=== PATIENT | female | born 1975 | race American Indian/Alaskan Native ===

== ENCOUNTER 2018-08-24 15:42 | Inpatient (IN) | payer OTHER ==
[~2018-08-24] VITALS: Ht 162.6 cm; Wt 99.7 kg
[2018-08-24] MEDS ORDERED: GABAPENTIN300 MG PO (16:07)
[2018-08-24] MEDS ORDERED: CYMBALTA60 MG PO (16:08)
--- NOTE | 2018-08-25 09:51 | HP ---
[facility] [address], [place] [address] Signed ADMISSION DATE: 08/24/2018 REASON FOR ADMISSION: Obstructive jaundice, cholecystitis, and gallstones. HISTORY: This obese (37.6 kg/m2 BMI) woman is a registered [employer] member at the local [facility]. She presented to the emergency room today, where she was evaluated by Dr. Alicea. She had been referred from [facility] having had liver enzyme studies a few days ago, which showed market transaminase elevation as well as alkaline phosphatase and what was said to be normal bilirubin at that time. Her evaluation clinically showed her to be jaundiced and repeat lab studies showed a normal protime, but a chem profile showing a total bilirubin of 6.6, an AST of 291, ALT of 671, alkaline phosphatase of 298. Her lipase was normal at 6. She has been having epigastric pain as well as nausea. The patient has never had abdominal surgery in the past, is not known to have had any abdominal problems particularly in the past. A gallbladder ultrasound was performed, which confirmed multiple gallstones. Normal appearing liver except for mild common duct dilatation to 1.3 cm. She is clinically considered likely to have obstructive jaundice related to gallstones and acute calculous cholecystitis. PAST MEDICAL HISTORY: Significant for marijuana use. She does not smoke or drink alcohol. She has had childbirth, has children ages 21 and 17. SOCIAL HISTORY: She is unemployed. She has a live-in boyfriend, Mr. Jones. REVIEW OF SYSTEMS: She denies any dysphagia or hematemesis. She has had no blood per rectum. Her pain is less than her nausea. She has concurrent fair amount of itching. MEDICATIONS: At the time of admission include Cymbalta 60 mg p.o. daily as well as gabapentin 300 mg tablets two tablets p.o. b.i.d. ALLERGIES: Electronically Signed By: CHELSEY MARTINEZ MD 08/25/18 0951 PATIENT NAME: SHANNAN MAI HISTORY AND PHYSICAL DATE OF : 73 REPORT #: [id number] PHYSICIAN: CHELSEY MARTINEZ MD PCP: JAMEEL WILSON REPORT IS CONFIDENTIAL AND NOT TO BE RELEASED WITHOUT AUTHORIZATION [facility] [address], [place] [address] Signed She has no known drug allergies. PHYSICAL EXAMINATION: GENERAL: This is an obese, woman, who does not look systemically toxic at the moment. VITAL SIGNS: Temperature is 99, pulse is 65, blood pressure 143/61, pulse oximetry 99%. HEENT: Mucous membranes are slightly dry. Trachea is midline. CHEST: Clear. There is no wheeze or rhonchi. HEART: Regular without murmur. ABDOMEN: Quite obese. There is mild tenderness in the epigastric and right subcostal area. There is no ascites clinically. EXTREMITIES: Show no clubbing, cyanosis, or edema. LAB STUDIES: Lab studies show the hepatitis panel having been obtained, results pending. Chem profile showing a potassium of 3.4, creatinine of 0.64, glucose 110, but total bilirubin 6.6, AST 291, ALT 671, alkaline phosphatase 298, lipase 6. INR is 0.8. I reviewed the ultrasound in detail. ASSESSMENT: The patient likely does have acute calculous cholecystitis, now complicated by choledocholithiasis as manifested by elevated liver enzymes as well as elevated bilirubin. She needs admission to the hospital, intravenous antibiotics, parenteral pain medication, DVT prophylaxis, and consideration for cholecystectomy. A laparoscopic approach with laparoscopic common duct would be a consideration if cholangiogram demonstrates a distal common duct stone or stones. On the other hand, given her obesity the possibility of an open operation may be considered as well. We will obtain lab studies in the morning to see what trend her liver enzymes are, in particular her bilirubin. If things are worsening, then imaging might be considered for MRCP, though it would not markedly change an operative plan unless neoplasm rather than stones were the cause of the problem. I think it is unlikely that a pancreatic neoplasm would be causing biliary obstruction. However, I would also expect her to have more tenderness than she does currently. In any case, she will be a regular admit inpatient type anticipating probably several days of hospitalization. Chelsey Martinez MD Electronically Signed By: CHELSEY MARTINEZ MD 08/25/18 0951 PATIENT NAME: SHANNAN MAI HISTORY AND PHYSICAL DATE OF : 73 REPORT #: [id number] PHYSICIAN: CHELSEY MARTINEZ MD PCP: JAMEEL WILSON REPORT IS CONFIDENTIAL AND NOT TO BE RELEASED WITHOUT AUTHORIZATION [facility] [address] [place] [address] Signed HERMES/JOAQUIN /[id number] cc: [facility] Dr. Alicea Copies: [facility] ~ Electronically Signed By: CHELSEY MARTINEZ MD 08/25/18 0951 PATIENT NAME: SHANNAN MAI HISTORY AND PHYSICAL DATE OF : 73 REPORT #: [id number] PHYSICIAN: CHELSEY MARTINEZ MD PCP: JAMEEL WILSON REPORT IS CONFIDENTIAL AND NOT TO BE RELEASED WITHOUT AUTHORIZATION
[2018-08-28] MEDS ORDERED: MAPAP325 MG PO (11:48)
[2018-08-28] MEDS ORDERED: HYDROMORPHONE HC2 MG PO (11:48)
[2018-08-28] MEDS ORDERED: CIPRO500 MG PO (11:50)
--- NOTE | 2018-08-29 10:11 | OR ---
[facility] [address] [facility] [place] [address] Signed DATE OF OPERATION: 08/25/2018 SURGEON: Chelsey Martinez MD PREOPERATIVE DIAGNOSES: 1. Obstructive jaundice and acute calculous cholecystitis. 2. Obesity. POSTOPERATIVE DIAGNOSES: 1. Severe acute cholecystitis. 2. Complete common duct obstruction secondary to large obstructing stone and debris. 3. Morbid obesity. PROCEDURES PERFORMED: 1. Laparoscopy/laparoscopic cholecystectomy with conversion to open cholecystectomy with open common bile duct exploration. 2. Flexible choledochoscopy with basket retrieval of distal common bile duct stone. 3. Surgeon-directed fluoroscopy. NUMERICAL CONTROL MACHINE OPERATOR: Nurse (Samir Conde RN). ANESTHESIA: General endotracheal, Miguel Esparza AUTOMATION AND CONTROLS SUPERVISOR. DRAINS: A 14-Eritrean T-Tube and 7 mm flat Tyrell. INDICATION: This 43-year-old woman was admitted yesterday with significant jaundice with a bilirubin of greater than 6, an elevated alkaline phosphatase and other liver enzymes. White count was not elevated. She had been painful and sick for a few days leading up to her presentation to [facility] who transferred her to [facility] for further evaluation. Her evaluation did include a gallbladder ultrasound which showed a dilated common duct as well as multiple stones. She was fluid resuscitated given intravenous antibiotics, parenteral pain medication and so forth, and her symptoms largely resolved. Interestingly, her liver enzymes decreased and bilirubin went from 6 to 3.4. Electronically Signed By: CHELSEY MARTINEZ MD 08/29/18 1011 PATIENT NAME: SHANNAN MAI OPERATIVE REPORT DATE OF : 73 REPORT #: [id number] PHYSICIAN: CHELSEY MARTINEZ MD PCP: ELLE WILSON REPORT IS CONFIDENTIAL AND NOT TO BE RELEASED WITHOUT AUTHORIZATION [facility] [address] [place], [place] [address] Signed Her symptoms markedly improved since last night and I had anticipated possible passage of common duct stone that may have been present. She is admitted at this time to undergo a laparoscopic cholecystectomy for acute cholecystitis and possible common duct exploration by a laparoscopic or even open method depending on findings. The risks of bleeding, infection, bile duct injury, need for open procedure, need for prolonged other interventions, including T-tube and so forth have been reviewed with the patient and her boyfriend. They understand and wished to proceed. FINDINGS: She was indeed morbidly obese. Nevertheless, good access was noted to the upper abdomen. The liver appeared normal. The gallbladder was covered in the fatty peritoneum and was markedly inflamed. Dissection was lengthy and laborious in identifying the infundibulum of the gallbladder. Cholangiogram ultimately performed during laparoscopic evaluation showed complete obstruction of the common duct, marked dilation of the common duct. A laparoscopic approach could not be possible despite usual intention and ability to do so. She required conversion to open operation, which was notable for markedly fibrotic and inflammatory changes of the triangle of Calot including the common duct. Needle cholangiogram confirmed distal common duct obstruction and common duct exploration allowed for egress of amorphous stone debris and flexible choledochoscopy identified an impacted large distal common duct stone which was removed with stone basket. A T-tube completion cholangiogram showed good flow into the duodenum. No sign of obstruction, stone, or other problem. The operation was prolonged, complicated, and difficult lasting from 6 p.m. to 9:30 p.m. DESCRIPTION OF PROCEDURE: The patient was brought to the operating room, given a general endotracheal anesthetic. She had been on antibiotic Ancef. Sequential compression device stockings were used and heparin subcutaneously administered. After satisfactory general endotracheal anesthesia, the abdomen was prepared with a chlorhexidine solution and draped sterilely. Infraumbilical incision was made and through her thick abdominal pannus, a Rupesh cannula ultimately placed and pneumoperitoneum achieved to a level of 14 mmHg of carbon dioxide gas. Intraabdominal inspection showed no sign of ascites or carcinomatosis. The gallbladder was obscured from view initially. Three additional trocars were placed in usual configuration in the subxiphoid, right midclavicular, and right anterior axillary line. The gallbladder had adherent omental adhesions which were taken down with blunt and electrocautery dissection. Maintaining dissection high on the infundibulum, dissection was undertaken with electrocautery. Marked inflammatory changes of the gallbladder in the infundibulum were noted. A bulbous appearing portion of the infundibulum obscured the anatomy quite markedly. Dissection was began at the mid gallbladder distalward so as to better identify the anatomy of the area. Cystic arterial branches were clipped and divided. Firm, fibrotic, and markedly inflamed infundibulum and triangle of Calot was noted. Ultimately, the infundibulum of the Electronically Signed By: CHELSEY MARTINEZ MD 08/29/18 1011 PATIENT NAME: SHANNAN MAI OPERATIVE REPORT DATE OF : 73 REPORT #: [id number] PHYSICIAN: CHELSEY MARTINEZ MD PCP: ELLE WILSON REPORT IS CONFIDENTIAL AND NOT TO BE RELEASED WITHOUT AUTHORIZATION [address] [address] Signed gallbladder could be identified and dissection carried distally, which showed a bulbous change suggestive of impacted stone material either an additional infundibulum or a markedly dilated cystic duct. Care was taken to avoid excessive dissection and unlikely possibility this represented the common bile duct. A transverse choledochotomy was made and was considered the infundibulum or dilated cystic duct and egress of cheesy stone debris was noted. Using the Yanes type cholangiocatheter, intraoperative cholangiography was undertaken. Contrast passed through into the common bile duct which was markedly dilated and was complete and total obstruction distally. The obstructing stone was one quite unlikely to be easily managed by ERCP, papillotomy, or other more noninvasive means. The decision was made to convert to open operation to better define the anatomy for safety sake as well as common duct exploration as able. The trocars were removed. The infraumbilical fascial incision was reapproximated with interrupted 0 Vicryl suture. Right subcostal incision was made, keeping it modest in size and utilizing one of the trocar sites. Dissection was carried through the thick abdominal pannus sharply, anterior rectus sheath, rectus muscle, and posterior rectus sheath and its attendant peritoneum were incised allowing for entry into the abdomen. A fair amount of irrigation fluid and so forth was noted. A Bookwalter retractor with the small ring was affixed to the table and this provided good exposure to the right upper abdomen. The gallbladder had almost completely been dissected free from the liver already from the laparoscopic effort. Further dissection was undertaken freeing it entirely. In the infundibulum, firm rubbery tissue was noted. It was unclear if this represented cystic duct or simply an extended portion of infundibulum. The peritoneum overlying the common bile duct was incised. It was thick and edematous, but did allow for better delineation of the structures. Soft duct area was identified, a butterfly needle cholangiogram was undertaken. This defined the anatomy quite nicely. The area that had been under dissection was indeed a thickened cystic duct, but it was not really patent to the gallbladder more than a very small amount. It would have been impossible to have done a transcystic duct exploration. Complete obstruction of the distal duct was noted and marked dilation of the common duct noted. It was deemed advisable to do an open common duct exploration. Two stay sutures of 4-0 PDS were aligned along the common bile duct at the junction of the cystic duct, not far from the duodenal sweep. A choledochotomy was made in the common bile duct with an #11 blade on extended handle, allow for marked egress of bilious material and cheesy stone debris. Irrigation was undertaken with a bulb parachute/combatant diver officer after extending the choledochotomy, small amount. A Juanjose balloon biliary catheter was passed proximally Electronically Signed By: CHELSEY MARTINEZ MD 08/29/18 1011 PATIENT NAME: SHANNAN MAI OPERATIVE REPORT DATE OF : 73 REPORT #: [id number] PHYSICIAN: CHELSEY MARTINEZ MD PCP: ELLE WILSON REPORT IS CONFIDENTIAL AND NOT TO BE RELEASED WITHOUT AUTHORIZATION [facility] [address] [place] [address] Signed and distally retrieving no further material. A flexible choledochoscope with a camera adapter was then passed proximally in the common duct, showing no sign of proximal problem and then reoriented distally. There in the distal portion of the duct, was an obstructing large stone. A stone basket was passed down the channel of the scope, grasping the stone and gently withdrawn it through the choledochotomy. Photographs were taken. Flexible choledochoscope was reintroduced and examination distally showed complete clearance of the duct. There was a minimal amount of stone debris, which was gently suctioned free and gathered up. A 14-Eritrean T-Tube was then cut to usual configuration and secured into the common bile duct. The choledochotomy was secured with interrupted 4-0 PDS suture. Irrigation of the T-tube showed no sign of leakage. Through a separate stab incision, a 7 mm flat Tyrell drain was anticipated. A completion T-tube cholangiogram was undertaken showing free flow of contrast in the duodenum. No sign of obstruction or other problem. The common duct remained dilated as it would be expected. The cystic duct which was very dilated and edematous was oversewn with a horizontal mattress of 2-0 PDS suture. A 7 mm flat Tyrell drain was placed as a backup drain in the subhepatic space. There was no leakage of bile from the choledochotomy repair. Irrigation was undertaken and plans made for closure. The T-tube was brought out through a central midline stab incision without keeping it too tight so as to avoid dislodgement and secured to the skin with nylon suture. The Tyrell drain was secured laterally through a 5 mm trocar site. The posterior sheath and its attendant peritoneum were reapproximated with running #1 PDS suture. Muscular layer was irrigated. The anterior rectus sheath reapproximated with running PDS also. Subcutaneous tissue was irrigated copiously and the skin closed with running subcuticular 3-0 Vicryl. Steri-Strips were applied. Care was taken to secure the T-tube and Tyrell drain with separate OpSite so as to avoid dislodgement. Mepilex silver sponge dressing was applied to the main incision. Infraumbilical incision was reapproximated and secured with Steri-Strips. As the operation had been rather prolonged, a Yee catheter was placed showing clear yellow orange urine. The patient was ultimately extubated and transferred to recovery room in good condition having suffered no complication. Sponge, needle, and instrument counts reported as Electronically Signed By: CHELSEY MARTINEZ MD 08/29/18 1011 PATIENT NAME: SHANNAN MAI OPERATIVE REPORT DATE OF : 73 REPORT #: [id number] PHYSICIAN: CHELSEY MARTINEZ MD PCP: ELLE WILSON REPORT IS CONFIDENTIAL AND NOT TO BE RELEASED WITHOUT AUTHORIZATION [facility] [address] [place] [address] Signed correct x3. Blood loss was about 100 mL. The operation was prolonged, complicated, and difficult lasting three and half hours. MD HERMES Alberto/MODL /[id number] cc: Elle Alicea MD Copies: ELLE WILSON WILLIAM S MD ~ Electronically Signed By: CHELSEY MARTINEZ MD 08/29/18 1011 PATIENT NAME: SHANNAN MAI OPERATIVE REPORT DATE OF : 73 REPORT #: [id number] PHYSICIAN: CHELSEY MARTINEZ MD PCP: ELLE WILSON REPORT IS CONFIDENTIAL AND NOT TO BE RELEASED WITHOUT AUTHORIZATION
--- NOTE | 2018-08-29 10:33 | DS ---
[facility] [address] [place], [place] [address] Signed ADMISSION DATE: 08/24/2018 DISCHARGE DATE: 08/28/2018 REASON FOR ADMISSION: This 43-year-old [place] woman was admitted on August 24, 2018, with significant jaundice with bilirubin greater than 6, elevated alkaline phosphatase, and other liver enzymes. She had been painful and sick for a few days leading up to her presentation to [facility] and transferred to [facility] emergency room for further evaluation. Evaluation included gallbladder ultrasound showing a dilated common duct as well as multiple gallstones. She is admitted for further evaluation and care. PERTINENT PHYSICAL: GENERAL: Showed an [place] woman who appeared jaundiced. Trachea is midline. CHEST: Clear. HEART: Regular without murmur. ABDOMEN: Very obese with tenderness in right upper abdomen. HOSPITAL COURSE: She was admitted, given fluid resuscitation, parenteral pain medication, antibiotics and so forth. Her bilirubin did drop from 6 to 3.5. Liver enzymes are still elevated. On August 25, 2018, she underwent laparoscopy, anticipating laparoscopic cholecystectomy. Cholangiogram showed a common duct that was markedly dilated with complete obstruction and extremely large stone or obstruction within it. It is unlikely this would have been able to pass by a laparoscopic transcystic duct exploration or even ERCP probably. On that basis, she is converted to open operation where she underwent common duct exploration. She was found to have a large gallstone wedged in the distal bile duct as well as a fair amount of sludge material within the common duct. A T-tube was placed. T-tube cholangiogram showed good flow into the duodenum and no sign of obstructing lesion at that point. Accessory drain was placed in subhepatic space. Her postoperative course was impressively unremarkable. The T-tube bile drain was left to drainage for 48 hours and then capped off, which she tolerated well. By the time of discharge, she is ambulating well, tolerating a regular diet. Accessory drain has been removed and she is doing markedly better. Her liver enzymes have never turned to normal. This plan that she will undergo a T-tube cholangiogram as an outpatient at which point, it will be pole that it is without sign of abnormality. In the meantime, she will leave the T-tube in place. She was instructed to shower and to walk on a daily basis. Electronically Signed By: CHELSEY MARTINEZ MD 08/29/18 1033 PATIENT NAME: SHANNAN MAI DISCHARGE SUMMARY DATE OF : 73 REPORT #: [id number] PHYSICIAN: CHELSEY MARTINEZ MD PCP: ELLE WILSON REPORT IS CONFIDENTIAL AND NOT TO BE RELEASED WITHOUT AUTHORIZATION [facility] [address] [place], [place] [address] Signed DISCHARGE MEDICATIONS: Will include: 1. Hydromorphone 2 mg tablets 1 to 2 every 4 hours as needed for pain, #5, no refill. 2. Tylenol 325 two tablets p.o. q.6 hours as needed for pain. 3. Continued use of gabapentin 300 mg tablets, 2 tablets p.o. b.i.d. 4. Duloxetine. 5. Cymbalta 60 mg tablets daily. Additionally, she was discharged with ciprofloxacin 500 mg tablet to take one-half hour before T-tube cholangiogram which will be done in about 2 to 3 weeks. If she has problems in the meantime, she will let me know. She is not restricted in her diet. She should lift no more than 20 pounds for the next 4 weeks. DISCHARGE DIAGNOSES: 1. Acute calculus cholecystitis with complete common duct obstruction and obstructive jaundice, status post laparoscopy with conversion to open cholecystectomy and open common duct exploration. Flexible choledochoscopy and retrieval of impacted stone debris in distal common duct. 2. Obesity. 3. Daily marijuana use. MD HERMES Alberto/MODL /[id number] cc: MD Elle Pepper Copies: FERDINAND PEDERSEN MD, ELIZABETH ~ Electronically Signed By: CHELSEY MARTINEZ MD 08/29/18 1033 PATIENT NAME: SHANNAN MAI DISCHARGE SUMMARY DATE OF : 73 REPORT #: [id number] PHYSICIAN: CHELSEY MARTINEZ MD PCP: ELLE WILSON REPORT IS CONFIDENTIAL AND NOT TO BE RELEASED WITHOUT AUTHORIZATION
== END 2018-08-28 15:23 | disposition home or self-care (01) | DRG 413 ==
LOC: ED 15:42 → MS 18:42
PROVIDERS: ADMIT Surgery
PROC: 0FC90ZZ Extirpation of Matter from Common Bile Duct, Open Approach (ICD-10-PCS; 2018-08-25)
PROC: 0FJ44ZZ Inspection of Gallbladder, Percutaneous Endoscopic Approach (ICD-10-PCS; 2018-08-25)
PROC: BF101ZZ Fluoroscopy of Bile Ducts using Low Osmolar Contrast (ICD-10-PCS; 2018-08-25)
PROC: 0FT40ZZ Resection of Gallbladder, Open Approach (ICD-10-PCS; principal; 2018-08-25 06:13)
DX: K80.63 Calculus of gallbladder and bile duct with acute cholecystitis with obstruction (principal); E66.01 Morbid (severe) obesity due to excess calories; Z68.37 Body mass index [BMI] 37.0-37.9, adult; Z79.899 Other long term (current) drug therapy; Z53.31 Laparoscopic surgical procedure converted to open procedure
CPT/HCPCS: 00790; 36415; 74300; 76705; 80053; 82150; 82247; 82465; 83615; 83690; 84100; 84478; 84550; 85025; 85049; 85610; 85730; 86704; 86706; 86709; 86803; 87340; 96361; 96374; 96375; 99285-25; J0690; J1100; J1170; J1644; J1885; J2250; J2270; J2405; J2704; J3010; J7030; J7040; J7120; Q9967

== ENCOUNTER 2018-09-24 19:23 | Emergency (ER) | payer OTHER ==
[~2018-09-24] VITALS: Ht 162.6 cm; Wt 99.7 kg
--- OUTSIDE RECORDS SUMMARY | ~2018-09-24 | XMS | Encounter Summary ---
Demographics + + + | Address | [address] | | | [place] [address] | + + + | Home Phone | | + + + | Preferred Language | Unknown | + + + | Marital Status | Single | + + + | Worship Affiliation | Unknown | + + + | Race | Unknown | + + + | Ethnic Group | Unknown | + + + Author + + + | Author | [facility] | | | and [place] | + + + | Organization | [facility] | | | and [place] | + + + | Address | Unknown | + + + | Phone | Unavailable | + + + Support + + + + + | Name | Relationship | Address | Phone | + + + + + | Farheen Brown | ECON | [place], [place] | | | | | [address] | | + + + + + Care Team Providers + +------+ + | Care Policy Cancellation Clerk Name | Role | Phone | + +------+ + | Wyatt Higgins | PCP | | + +------+ + Reason for Visit Auth/Cert +--------+--------+ + + + + | Status | Reason | Specialty | Diagnoses / | Referred By | Referred To | | | | | Procedures | Contact | Contact | +--------+--------+ + + + + | | | | Diagnoses | | Milind | | | | | Common bile | | Rodrick Schneider | | | | | duct (CBD) | | [address] | | | | obstruction | | [address] | | | | | Gall | | [place], | | | | | bladder | | [place] [address] | | | | | stones | | Phone: | | | | | Procedures | | [phone] | | | | | [place] | | Fax: | | | | | ESOPHAGOGAST | | [phone] | | | | | RODUODENOSCO | | | | | | | PY TRANSORAL | | | | | | | DIAGNOSTIC | | | | | | | IN ERCP DX | | | | | | | COLLECTION | | | | | | | SPECIMEN | | | | | | | BRUSHING/WAS | | | | | | | KELSY IN | | | | | | | ANESTHESIA | | | | | | | UPPER GI | | | | | | | ENDOSCOPIC | | | | | | | PX ERCP | | | | | | | ERCP | | | +--------+--------+ + + + + Encounter Details +--------+---------+ + + + | Date | Type | Department | Care Team | Description | +--------+---------+ + + + | 09/24/ | Surgery | [facility] | | ERCP | | 2019 | | [facility] | | | | | | [address] | | | | | | [place], [place] | | | | | | [address] | | | | | | [phone] | | | +--------+---------+ + + + Social History + +-------+ +--------+------+ | Tobacco Use | Types | Packs/Day | Years | Date | | | | | Used | | + +-------+ +--------+------+ | Never Assessed | | | | | + +-------+ +--------+------+ + + + | Sex Assigned at | Date Recorded | | | | + + + | Not on file | | + + + + + + + | Job Start Date | Occupation | Industry | + + + + | Not on file | Not on file | Not on file | + + + + + + + + | Travel History | Travel Start | Travel End | + + + + + + | No recent travel history available. | + + documented as of this encounter Last Filed Vital Signs + + + + | Vital Sign | Reading | Time Taken | + + + + | Blood Pressure | 125/83 | 09/24/2018 1430 PDT | + + + + | Pulse | 59 | 09/24/2018 1430 PDT | + + + + | Temperature | 36.4 C (97.5 F) | 09/24/20181315 PDT | + + + + | Respiratory Rate | 12 | 09/24/20181315 PDT | + + + + | Oxygen Saturation | 99% | 09/24/2018 1430 PDT | + + + + | Inhaled Oxygen | - | - | | Concentration | | | + + + + | Weight | 99.6 kg (219 lb 9.3 | 09/24/20181142 PDT | | | oz) | | + + + + | Height | 162.6 cm (5' 4") | 09/24/20181142 PDT | + + + + | Body Mass Index | 37.69 | 09/24/20181142 PDT | + + + + documented in this encounter Medications at Time of Discharge + + + +---------+ + + | Medication | Sig | Dispensed | Refills | Start | End Date | | | | | | Date | | + + + +---------+ + + | acetaminophen | Take 650 mg by mouth | | 0 | | | | (TYLENOL) 325 mg | every 4 hours as | | | | | | tablet | needed for Pain. | | | | | + + + +---------+ + + | ALPRAZolam (XANAX) | Take 0.5 mg by mouth | | 0 | | | | 0.5 mg tablet | 3 times daily as | | | | | | | needed for Anxiety. | | | | | + + + +---------+ + + | ciprofloxacin | Take 500 mg by mouth | | 0 | | | | (CIPRO) 500 mg | 2 times daily. | | | | | | tablet | | | | | | + + + +---------+ + + | gabapentin | Take 300 mg by mouth | | 0 | | | | (NEURONTIN) 300 mg | 3 times daily. | | | | | | capsule | | | | | | + + + +---------+ + + | HYDROmorphone | take 1 to 2 tablets | | 0 | 08/29/19 | | | (DILAUDID) 2 mg | by mouth every 4 | | | 19 | | | tablet | hours if needed for | | | | | | | pain | | | | | + + + +---------+ + + | LORazepam (ATIVAN) | | | 0 | | | | 2 MG tablet | | | | | | + + + +---------+ + + | sertraline | Take 50 mg by mouth | | 0 | | | | (ZOLOFT) 50 mg | Daily. | | | | | | tablet | | | | | | + + + +---------+ + + documented as of this encounter Plan of Treatment Not on filedocumented as of this encounter Procedures + +--------+ + + + | Procedure Name | Priori | Date/Time | Associated Diagnosis | Comments | | | ty | | | | + +--------+ + + + | FL ERCP | Routin | 09/24/2018 | | Results for this | | | e | 13:11 PDT | | procedure are in the | | | | | | results section. | + +--------+ + + + | ERCP | Routin | 09/24/2018 | | Results for this | | | e | 12:09 PDT | | procedure are in the | | | | | | results section. | + +--------+ + + + | POCT TEST, | Routin | 09/24/2018 | | Results for this | | URINE, QUAL | e | 11:53 PDT | | procedure are in the | | | | | | results section. | + +--------+ + + + | CBC NO DIFFERENTIAL | STAT | 09/24/2018 | | Results for this | | | | 11:49 PDT | | procedure are in the | | | | | | results section. | + +--------+ + + + | COMPREHENSIVE | STAT | 09/24/2018 | | Results for this | | METABOLIC PANEL | | 11:49 PDT | | procedure are in the | | | | | | results section. | + +--------+ + + + documented in this encounter Results FL ERCP (09/24/2018 13:11 PDT) + + | Specimen | + + | | + + + + + | Narrative | Performed At | + + + | FLUOROSCOPY FOR ERCP 09/24/2018 12:35 PM CLINICAL HISTORY: intra | [facility] | | op COMPARISON: None available FINDINGS: Fluoroscopic spot | | | images from ERCP are provided and demonstrate the presence of an | | | endoscope and cannulation of the common bile duct. Initial images | | | demonstrate a rounded radiolucent filling defect in the distal duct | | | with progressive contrast opacification of the common duct and | | | central intrahepatic biliary radicals, which appear subjectively | | | prominent in caliber but demonstrate no other filling defect or | | | contour irregularity. There is no contrast extravasation. | | | IMPRESSION - 1. FLUOROSCOPY FOR ERCP DESCRIBED. BILIARY | | | DUCTAL CALIBER IS SUBJECTIVELY PROMINENT. A RADIOLUCENT FILLING | | | DEFECT IN THE DISTAL COMMON DUCT ON INITIAL IMAGES MAY REFLECT A GAS | | | BUBBLE OR CHOLEDOCHOLITHIASIS. PLEASE SEE THE OPERATIVE REPORT FOR | | | FURTHER DETAILS. Dictated and Signed by: Eulogio Wheat MD | | | Electronically signed: 09/24/2018 1:47 PM | | + + + + + | Procedure Note | + + | Jonah, Rad Results In - 09/24/2018 1350 PDT FLUOROSCOPY FOR ERCP 09/24/2018 12:35 PM | | | | CLINICAL HISTORY: intra op | | | | COMPARISON: None available | | | | FINDINGS: Fluoroscopic spot images from ERCP are provided and demonstrate the | | presence of an endoscope and cannulation of the common bile duct. Initial | | images demonstrate a rounded radiolucent filling defect in the distal duct with | | progressive contrast opacification of the common duct and central intrahepatic | | biliary radicals, which appear subjectively prominent in caliber but demonstrate | | no other filling defect or contour irregularity. There is no contrast | | extravasation. | | | | IMPRESSION - | | 1. FLUOROSCOPY FOR ERCP DESCRIBED. BILIARY DUCTAL CALIBER IS SUBJECTIVELY | | PROMINENT. A RADIOLUCENT FILLING DEFECT IN THE DISTAL COMMON DUCT ON INITIAL | | IMAGES MAY REFLECT A GAS BUBBLE OR CHOLEDOCHOLITHIASIS. PLEASE SEE THE | | OPERATIVE REPORT FOR FURTHER DETAILS. | | | | Dictated and Signed by: Eulogio Wheat MD | | Electronically signed: 09/24/2018 1:47 PM | + + + +---------+ + + | Performing | Address | City/State/Zipcode | Phone Number | | Organization | | | | + +---------+ + + | [facility] | | | | + +---------+ + + ERCP (09/24/2018 12:09 PDT) + + | Specimen | + + | | + + + + ---+ | Narrative | Performed At | + + ---+ | | [facility] | | GastroenterologyPatient Name: Hannah Mccauley Date: 09/24/2018 12:09 | [facility] | | PMMRN: [id number] #: [id number] of : 1975Admit | | | Type: AmbulatoryAge: Room: [place] [address]Gender: FemaleNote Status: | | | FinalizedAttending MD: RODRICK SKINNER , | | | MDProcedure: ERCPIndications: Bile duct | | | stone(s), Abdominal pain of suspected biliary | | | origin, Filling defect on | | | intraoperative cholangiogram, | | | Elevated liver enzymesProviders: RODRICK SKINNER, | | | , Beryl Hernandez RN, | | | Elle Farley, Cupola Operator Insulation, Ansley Garcia, | | | Cupola Operator Insulation, Avery Love, | | | (Anesthesia Staff)Referring MD: Wyatt Higgins MD | | | (Referring MD)Medicines: Monitored Anesthesia | | | CareComplications: No immediate | | | complications.Procedure: Pre-Anesthesia Assessment: - | | | Prior to the procedure, a History and Physical was performed, and | | | patient medications and allergies were reviewed. The patient | | | is competent. The risks and benefits of the procedure and the | | | sedation options and risks were discussed with the patient. | | | All questions were answered and informed consent was | | | obtained. Patient identification and proposed procedure were | | | verified by the physician, the nurse and the anesthesiologist | | | in the pre-procedure area in the procedure room. Mental | | | Status Examination: alert and oriented. Airway Examination: Mallampati | | | Class II (the uvula but not tonsillar pillars visualized). | | | Respiratory Examination: clear to auscultation. CV | | | Examination: normal. Prophylactic Antibiotics: The patient | | | does not require prophylactic antibiotics. Prior | | | Anticoagulants: The patient has taken no previous anticoagulant or | | | antiplatelet agents. ASA Grade Assessment: III - A patient | | | with severe systemic disease. After reviewing the risks and | | | benefits, the patient was deemed in satisfactory condition to | | | undergo the procedure. The anesthesia plan was to use | | | monitored anesthesia care (MAC). Immediately prior to | | | administration of medications, the patient was re-assessed for | | | adequacy to receive sedatives. The heart rate, respiratory | | | rate, oxygen saturations, blood pressure, adequacy of | | | pulmonary ventilation, and response to care were monitored | | | throughout the procedure. The physical status of the patient | | | was re-assessed after the procedure. After obtaining informed | | | consent, the scope was passed under direct vision. Throughout | | | the procedure, the patient's blood pressure, pulse, and | | | oxygen saturations were monitored continuously. The endoscope was | | | introduced through the mouth, and advanced to the duodenum | | | and used to inject contrast into the bile duct. The ERCP was | | | accomplished without difficulty. The patient tolerated the | | | procedure well. The case was discussed with Dr Higgins on the | | | phone prior to the procedure. He requested stone extraction, | | | and then he plans to remove the T tube down the | | | road.Findings: A hematologist oncologist film of the abdomen was obtained. | | | Surgical clips, consistent with a previous cholecystectomy, | | | were seen in the area of the right upper quadrant of the | | | abdomen. A surgical T tube was seen in the bile duct. The | | | esophagus was successfully intubated under direct vision. The | | | scope was advanced to the major papilla in the descending duodenum | | | without detailed examination of the pharynx, larynx and | | | associated structures, and upper GI tract. The papilla was | | | everted and stenotic. The upper GI tract was otherwise | | | grossly normal. The bile duct was deeply cannulated with a | | | 0.035" hydrawire first, then the short-nosed traction | | | sphincterotome was advanced over the wire, without the use of | | | contrast. A pancreatogram was neither attempted nor obtained. | | | Contrast was injected. I personally interpreted the bile duct | | | images. There was brisk flow of contrast through the ducts. | | | Image quality was excellent. Contrast extended to the entire | | | biliary tree. The distal common bile duct contained a 10mm | | | filling defect thought to be a stone. The common bile duct | | | was severely dilated, with a stone causing an obstruction. The | | | largest diameter was 12 mm. There was evidence of a prior | | | cholecystectomy, and a T tube was seen in the mid CBD. The | | | intrahepatics filled with contrast and appeared mildly | | | dilated. The cholangiogram from the mid CBD to common hepatic | | | duct was limited due to the presence of the T tube. Biliary | | | sphincterotomy was made with a monofilament traction | | | (standard) sphincterotome using ERBE electrocautery. There was no | | | post-sphincterotomy bleeding. The biliary tree was swept with | | | a 12 mm balloon starting at the upper third of the main bile | | | duct, but the stone kept slipping up above the balloon. | | | Mechanical lithotripsy with a 2cm trapezoid was successful on | | | the first attempted. The biliary tree was then swept with a | | | 9-12 mm balloon starting at the upper third of the main bile | | | duct. All stone fragments were removed. A final occlusion | | | cholangiogram was devoid of any filling defects. There was good | | | drainage of bile and dye as seen endoscopically and | | | fluoroscopically.Impression: - A filling defect consistent | | | with a stone was seen on the cholangiogram. - The common bile | | | duct was severely dilated, with a stone causing an | | | obstruction. - A biliary sphincterotomy was performed. | | | - Lithotripsy was successful. - The biliary tree was swept | | | with complete removal of the stone and | | | debris.Recommendation: - Avoid aspirin and nonsteroidal | | | anti-inflammatory medicines for 2 weeks. - Clear liquid diet | | | for 1 day, then advance as tolerated to low fat diet. - Return | | | to referring physician. - Watch for pancreatitis, bleeding, | | | perforation, and cholangitis. - The findings and | | | recommendations were discussed with the patient.RODRICK SKINNRE, | | | 09/24/2018 1:28:18 PMThis report has been signed | | | electronically.Number of Addenda: 0Note Initiated On: 09/24/2018 12:09 | | | PMScope In: 12:35:06 PMScope Out: 1:03:23 PM [facility]. | | | [facility], [facility] [place] [address] | | | [phone] | | |Note Initiated On: 09/24/2018 12:09 PM | | |Scope In: 12:35:06 PM | | |Scope Out: 1:03:23 PM | | | [facility]. [facility], [address] [facility], [place], [place] | | | [address] | | + + ---+ + +---------+ + + | Performing | Address | City/State/Zipcode | Phone Number | | Organization | | | | + +---------+ + + | [facility] | | | | + +---------+ + + POCT Test, Urine, QUAL (09/24/2018 11:53 PDT) + + + + + + | Component | Value | Ref Range | Performed | Pathologist | | | | | At | Signature | + + + + + + | | Negative | Negative | | | | Test, | | | | | | Urine, POC | | | | | + + + + + + | Internal QC | Acceptable | Acceptable | | | + + + + + + | Specific | | 1.010, 1.015, | | | | [place], | | 1.020, 1.025 | | | | POC | | | | | + + + + + + | Lot Number | [id number] | | | | + + + + + + | Expiration | 51,120 | | | | | Date | | | | | + + + + + + + + | Specimen | + + | Urine | + + Comprehensive Metabolic Panel (09/24/2018 11:49 PDT) + + + + + + | Component | Value | Ref Range | Performed | Pathologist | | | | | At | Signature | + + + + + + | Na | 140 | 136 - 145 | [facility] | | | | | mmol/L | [facility] | | | | | | [facility] | | | | | | [facility] - | | | | | | LABORATORY | | + + + + + + | K | 3.6 | 3.4 - 5.1 | [facility] | | | | | mmol/L | [facility] | | | | | | [facility] | | | | | | [facility] - | | | | | | LABORATORY | | + + + + + + | Cl | 110 (H) | 98 - 107 mmol/L | [facility] | | | | | | [facility] | | | | | | [facility] | | | | | | [facility] - | | | | | | LABORATORY | | + + + + + + | CO2 | 25 | 20 - 31 mmol/L | [facility] | | | | | | [facility] | | | | | | [facility] | | | | | | [facility] - | | | | | | LABORATORY | | + + + + + + | Anion Gap | 5 | 3 - 16 mmol/L | [facility] | | | | | | [facility] | | | | | | [facility] | | | | | | [facility] - | | | | | | LABORATORY | | + + + + + + | Glucose | 104 | 60 - 106 mg/dL | [facility] | | | | | | [facility] | | | | | | [facility] | | | | | | C[facility] - | | | | | | LABORATORY | | + + + + + + | BUN | 12 | 9 - 23 mg/dL | [facility] | | | | | | [facility] | | | | | | [facility] | | | | | | [facility] - | | | | | | LAB[facility]ATORY | | + + + + + + | Creatinine | 0.80 | 0.55 - 1.02 | [facility] | | | | | mg/dL | [facility] | [facility] | [facility] | | | | | | [facility] - | | | | | | LAB[facility]ATORY | | + + + + + + | eGFR if not | >60Comment: GLOMERULAR | >=60 | [facility] | | | | FILTRATION | mL/min/1.73m2 | [facility] | | | [place] | RATE,ESTIMATED mL/min | | MEDICAL | | | | /1.64z0Obam than 60 | | CENTER - | | | | Chronic kidney | | LABORATORY | | | | disease,if found over a | | | | | | 3-month period.Less than | | | | | | 15 Kidney | | | | | | failureFor | | | | | | Americans,multiply the | | | | | | calculated GFR by 1.21. | | | | | | | | | | + + + + + + | Ca | 9.6 | 8.7 - 10.4 | [facility] | | | | | mg/dL | [facility] | | | | | | MEDICAL | | | | | | CENTER - | | | | | | LABORATORY | | + + + + + + | Albumin | 4.8 | 3.2 - 4.8 g/dL | [facility] | | | | | | [facility] | | | | | | [facility] | | | | | | [facility] - | | | | | | LABORATORY | | + + + + + + | Bilirubin | 0.9 | 0.3 - 1.2 mg/dL | [facility] | | | Total | | | [facility] | | | | | | [facility]ICAL | | | | | | CENTER - | | | | | | LABORATORY | | + + + + + + | Total | 7.8 | 5.7 - 8.2 g/dL | [facility] | | | Protein | | | [facility] | | | | | | MEDICAL | | | | | | CENTER - | | | | | | LABORATORY | | + + + + + + | AST | 27 | 0 - 34 U/L | [facility] | | | | | | [facility] | | | | | | [facility] | | | | | | CENTER - | | | | | | LABORATORY | | + + + + + + | ALT | 30 | 10 - 49 U/L | [facility] | | | | | | [facility] | | | | | | [facility] | | | | | | C[facility] - | | | | | | LABORATORY | | + + + + + + | Alkaline | 143 (H) | 46 - 116 U/L | [facility] | | | Phosphatase | | | [facility] | | | | | | [facility] | | | | | | CENTER - | | | | | | LABORATORY | | + + + + + + | Globulin | 3.0 | 2.1 - 3.8 g/dL | [facility] | | | | | | [facility] | | | | | | [facility] | | | | | | C[facility] - | | | | | | LABORATORY | | + + + + + + | Albumin/Vickie | 1.6 | 0.8 - 1.9 | [facility] | | | bulin Ratio | | | [facility] | | | | | | [facility] | | | | | | CENTER - | | | | | | LABORATORY | | + + + + + + | BUN/Creatin | 15.0 | | [facility] | | | ine Ratio | | | [facility] | | | | | | [facility] | | | | | | CENTER - | | | | | | LABORATORY | | + + + + + + + + | Specimen | + + | Blood | + + + + + + + | Performing | Address | City/State/Zipcode | Phone Number | | Organization | | | | + + + + + | [facility] | [address] | [place] | [phone] | | [facility] | | [address] | | | - LABORATORY | | | | + + + + + CBC no Differential (09/24/2018 11:49 PDT) + +-------+ + + + | Component | Value | Ref Range | Performed | Pathologist | | | | | At | Signature | + +-------+ + + + | WBC | 8.4 | 4.0 - 11.0 K/uL | [facility] | | | | | | [facility] | | | | | | [facility] | | | | | | C[facility] - | | | | | | LABORATORY | | + +-------+ + + + | RBC | 5.04 | 3.70 - 5.20 | [facility] | | | | | M/uL | [facility] | | | | | | [facility] | | | | | | CENTER - | | | | | | LABORATORY | | + +-------+ + + + | Hemoglobin | 15.1 | 11.5 - 16.0 | [facility] | | | | | g/dL | [facility] | | | | | | [facility] | | | | | | [facility] - | | | | | | LABORATORY | | + +-------+ + + + | Hematocrit | 44.2 | 34.0 - 47.0 % | [facility] | | | | | | [facility] | | | | | | [facility] | | | | | | [facility] - | | | | | | LABORATORY | | + +-------+ + + + | MCV | 87.7 | 83.0 - 101.0 fL | [facility] | | | | | | [facility] | | | | | | [facility] | | | | | | [facility] - | | | | | | LAB[facility]ATORY | | + +-------+ + + + | MCH | 30.0 | 28.0 - 35.0 pg | [facility] | | | | | | [facility] | | | | | | [facility] | | | | | | [facility] - | | | | | | LABORATORY | | + +-------+ + + + | MCHC | 34.2 | 32.0 - 36.0 | [facility] | | | | | g/dL | [facility] | | | | | | [facility] | | | | | | CENTER - | | | | | | LABORATORY | | + +-------+ + + + | RDW-CV | 13.1 | <15.0 % | [facility] | | | | | | [facility] | | | | | | [facility] | | | | | | [facility] - | | | | | | LABORATORY | | + +-------+ + + + | RDW-SD | 42.0 | 35.1 - 46.3 fL | [facility] | | | | | | [facility] | | | | | | [facility] | | | | | | [facility] - | | | | | | LABORATORY | | + +-------+ + + + | Platelet | 349 | 140 - 440 K/uL | [facility] | | | Count | | | [facility] | | | | | | [facility] | | | | | | CENTER - | | | | | | LABORATORY | | + +-------+ + + + | MPV | 9.4 | 6.5 - 12.4 fL | [facility] | | | | | | [facility] | | | | | | [facility] | | | | | | C[facility] - | | | | | | LABORATORY | | + +-------+ + + + | % nRBC | 0 | 0 - 2 per 100 | [facility] | | | | | WBCs | [facility] | | | | | | [facility] | | | | | | CENTER - | | | | | | LABORATORY | | + +-------+ + + + | Absolute | 0.00 | 0.00 - 0.01 | [facility] | | | nRBC | | K/uL | [facility] | | | | | | [facility] | | | | | | [facility] - | | | | | | LABORATORY | | + +-------+ + + + + + | Specimen | + + | Blood | + + + + + + + | Performing | Address | City/State/Zipcode | Phone Number | | Organization | | | | + + + + + | [facility] | [address] | [place] | [phone] | | [facility] | | [address] | | | - LABORATORY | | | | + + + + + documented in this encounter Visit Diagnoses + + | Diagnosis | + + | Common bile duct (CBD) obstruction Obstruction of bile duct | + + | Gall bladder stones Calculus of gallbladder without mention of cholecystitis or | | obstruction | + + documented in this encounter Admitting Diagnoses + + | Diagnosis | + + | Common bile duct (CBD) obstruction Obstruction of bile duct | + + | Gall bladder stones Calculus of gallbladder without mention of cholecystitis or | | obstruction | + + documented in this encounter Administered Medications + +--------+---------+------+------+------+ | Medication Order | MAR | Action | Dose | Rate | Site | | | Action | Date | | | | + +--------+---------+------+------+------+ + +---+ | albuterol 2.5 mg/3 mL nebulizer | | | solution 2.5 mg 2.5 mg, | | | Nebulization, ONCE PRN, Wheezing, | | | Starting Simran 09/24/18 at 1142, | | | For 1 dose, RT will administer., | | | Pre-op | | + +---+ | | | + +---+ | albuterol 2.5 mg/3 mL nebulizer | | | solution 2.5 mg 2.5 mg, | | | Nebulization, ONCE PRN, Wheezing, | | | Starting Simran 09/24/18 at 1337, | | | For 1 dose, Notify anesthesia if | | | patient is wheezing and does not | | | have a history of asthma or COPD | | | or current smoking., | | | Recovery/Phase I | | + +---+ | | | + +---+ | dextrose 50% injection 12.5-25 | | | g 12.5-25 g, Intravenous, EVERY | | | 15 MIN PRN, Low Blood Sugar, Give | | | 12.5g (25 mL) IV if blood | | | glucose 50-69 mg/dL. Give 25g | | | (50 mL) IV if blood glucose < 50, | | | Starting Simran 09/24/18 at 1142, | | | Repeat in 15 min if blood glucose | | | remains < 70 mg/dL. Repeat | | | blood glucose in 30 min once | | | blood glucose > 70., Pre-op | | + +---+ | | | + +---+ | dextrose 50% injection 12.5-25 | | | g 12.5-25 g, Intravenous, EVERY | | | 15 MIN PRN, Low Blood Sugar, For | | | hypoglycemia. Give 12.5g (25ml) | | | IV if blood glucose 50-69 | | | mg/dL. Give 25g (50ml) IV if | | | blood glucose < 50, Starting Simran | | | 09/24/18 at 1337, Give over 2 min. | | | Repeat in 15 min if blood | | | glucose remains < 70 mg/dL. | | | Repeat blood glucose in 30 min | | | once blood glucose > 70., | | | Recovery/Phase I | | + +---+ | | | + +---+ | fentaNYL (PF) injection 25-50 | | | mcg 25-50 mcg, Intravenous, | | | EVERY 15 MIN PRN, Pain, Give on | | | direction of physician, Starting | | | Simran 09/24/18 at 1142, For 4 doses, | | | Max total dose 100 mcg., Pre-op | | + +---+ | | | + +---+ | fentaNYL (PF) injection 25-50 | | | mcg 25-50 mcg, Intravenous, | | | EVERY 5 MIN PRN, Pain, Starting | | | Simran 09/24/18 at 1337, Maximum | | | total dose 250 mcg. PACU IV | | | Narcotic Priority: Only use | | | fentanyl for immediate post-op | | | pain (one dose) or breakthrough | | | pain when any other IV narcotics | | | ordered have been ineffective (if | | | ordered). If both morphine and | | | hydromorphone are ordered, use | | | morphine first, and use | | | hydromorphone if morphine | | | ineffective., Recovery/Phase I | | + +---+ | | | + +---+ | HYDROmorphone (DILAUDID) | | | injection 0.2-0.5 mg 0.2-0.5 mg, | | | Intravenous, EVERY 5 MIN PRN, | | | Pain, Starting [facility] 09/24/18 at | | | 1337, Maximum total dose 4 mg. | | | PACU IV Narcotic Priority: Only | | | use fentanyl for immediate | | | post-op pain (one dose) or | | | breakthrough pain when any other | | | IV narcotics ordered have been | | | ineffective (if ordered). If | | | both morphine and hydromorphone | | | are ordered, use morphine first, | | | and use hydromorphone if morphine | | | ineffective., Recovery/Phase I | | + +---+ | | | + +---+ + +-------+ +--------+---+---+ | indomethacin (INDOCIN) | Given | 09/25/19 | 100 mg | | | | suppository Rectal, PRN, | | 19 12:34 | | | | | Starting [facility] 09/24/18 at 1234 | | PDT | | | | + +-------+ +--------+---+---+ +---+---+ | | | +---+---+ + +---------+ +--------+-------+---+ | lactated ringers (LR) infusion | New Bag | 09/25/19 | 1,000 | 100 | | | at 100 mL/hr, Intravenous, | | 19 12:13 | mLs | mL/hr | | | CONTINUOUS, Starting Simran 09/24/18 | | PDT | | | | | at 1200, Pre-op | | | | | | + +---------+ +--------+-------+---+ + +---+ | | | + +---+ | lactated ringers (LR) infusion | | | at 10-100 mL/hr, Intravenous, | | | CONTINUOUS, Starting Simran 09/24/18 | | | at 1200, TKO., Pre-op | | + +---+ | | | + +---+ | meperidine (DEMEROL) injection | | | 12.5-25 mg 12.5-25 mg, | | | Intravenous, PRN, Shivering, | | | Starting Simran 09/24/18 at 1337, For | | | 2 doses, May Repeat once in 5 | | | min., Recovery/Phase I | | + +---+ | | | + +---+ | ondansetron (ZOFRAN) injection | | | 4 mg 4 mg, Intravenous, ONCE | | | PRN, Nausea, Starting Simran 09/24/18 | | | at 1142, For 1 dose, Pre-op | | + +---+ | | | + +---+ | ondansetron (ZOFRAN) injection | | | 4 mg 4 mg, Intravenous, ONCE | | | PRN, Nausea, Starting Simran 09/24/18 | | | at 1337, For 1 dose, | | | Recovery/Phase I | | + +---+ | | | + +---+ documented in this encounter
--- OUTSIDE RECORDS SUMMARY | ~2018-09-24 | XMS | Clinical Summary ---
Demographics + + + | Address | [address] | | | [place] [address] | + + + | Home Phone | | + + + | Preferred Language | Unknown | + + + | Marital Status | Single | + + + | Anglican Affiliation | Unknown | + + + | Race | Unknown | + + + | Ethnic Group | Unknown | + + + Author + + + | Author | [facility] | | | and [place] | + + + | Organization | [facility] | | | and [place] | + + + | Address | Unknown | + + + | Phone | Unavailable | + + + Support + + + + + | Name | Relationship | Address | Phone | + + + + + | Farheen Brown | ECON | [place], [place] | | | | | [address] | | + + + + + Care Team Providers + +------+ + | Care Network Analyst Name | Role | Phone | + +------+ + | Wyatt Higgins | PP | | + +------+ + Allergies No Known Allergies Medications + + + +---------+------+------+-------+ | Medication | Sig | Dispensed | Refills | Star | End | Statu | | | | | | t | Date | s | | | | | | Date | | | + + + +---------+------+------+-------+ | HYDROmorphone | take 1 to 2 tablets | | 0 | 03/2 | | Activ | | (DILAUDID) 2 mg | by mouth every 4 | | | 9/20 | | e | | tablet | hours if needed for | | | 19 | | | | | pain | | | | | | + + + +---------+------+------+-------+ | LORazepam (ATIVAN) | | | 0 | | | Activ | | 2 MG tablet | | | | | | e | + + + +---------+------+------+-------+ | acetaminophen | Take 650 mg by mouth | | 0 | | | Activ | | (TYLENOL) 325 mg | every 4 hours as | | | | | e | | tablet | needed for Pain. | | | | | | + + + +---------+------+------+-------+ | sertraline | Take 50 mg by mouth | | 0 | | | Activ | | (ZOLOFT) 50 mg | Daily. | | | | | e | | tablet | | | | | | | + + + +---------+------+------+-------+ | gabapentin | Take 300 mg by mouth | | 0 | | | Activ | | (NEURONTIN) 300 mg | 3 times daily. | | | | | e | | capsule | | | | | | | + + + +---------+------+------+-------+ | ciprofloxacin | Take 500 mg by mouth | | 0 | | | Activ | | (CIPRO) 500 mg | 2 times daily. | | | | | e | | tablet | | | | | | | + + + +---------+------+------+-------+ | ALPRAZolam (XANAX) | Take 0.5 mg by mouth | | 0 | | | Activ | | 0.5 mg tablet | 3 times daily as | | | | | e | | | needed for Anxiety. | | | | | | + + + +---------+------+------+-------+ | ALPRAZolam (XANAX) | take 1 tablet by | | 0 | 04/2 | 04/2 | Disco | | 0.5 mg tablet | mouth at bedtime | | | 2/20 | 3/20 | ntinu | | | | | | 19 | 19 | ed | + + + +---------+------+------+-------+ | ibuprofen | Take 600 mg by mouth | | 0 | | 09/01 | Disco | | (ADVIL,MOTRIN) 600 | every 6 hours as | | | | 5/20 | ntinu | | MG tablet | needed for Pain. | | | | 19 | ed | + + + +---------+------+------+-------+ Active Problems + + + | Problem | Noted Date | + + + | Common bile duct (CBD) obstruction | 09/22/2018 | + + + + + | Overview: Added automatically from request for surgery | | [id number] | + + + + + | Gall bladder stones | 09/22/2018 | + + + + + | Overview: Added automatically from request for surgery | | [id number] | + + Encounters +--------+ + + + + | Date | Type | Specialty | Care Team | Description | +--------+ + + + + | 09/24/ | Anesthesia | | Avery Love | | | 2018 | Event | | MD Ang | | +--------+ + + + + | 09/24/ | Surgery | | | ERCP | | 2018 | | | | | +--------+ + + + + | 09/24/ | Hospital | | Rodrick Skinner | Common bile duct | 2018 | Encounter | | MD Wyatt | (CBD) obstruction; | | | | | | Gall bladder stones; | | | | | | Right upper | | | | | | quadrant abdominal | | | | | | pain; Abnormal LFTs | +--------+ + + + + | 09/24/ | Hospital | | Rodrick Skinner | Arrived | | 2018 | Encounter | | MD Wyatt | | +--------+ + + + + | 09/24/ | Telephone | | Rodrick Skinner | Appointment (check | 2018 | | | MD Wyatt | in at 11 for ERCP) | +--------+ + + + + | 09/22/ | Abstract | | Rodrick Skinner | | | 2018 | | | MD Wyatt | | +--------+ + + + + | 09/22/ | Telephone | | Rodrick Skinner | Procedure (ERCP) | | 2018 | | | MD Wyatt | | +--------+ + + + + from Last 3 Months Social History + +-------+ +--------+------+ | Tobacco [...] recent travel history available. | + + Last Filed Vital Signs + + + + | Vital Sign | Reading | Time Taken | + + + + | Blood Pressure | 125/83 | 09/24/20181429 PDT | + + + + | Pulse | 59 | 09/24/20181429 PDT | + + + + | Temperature | 36.4 C (97.5 F) | 09/24/20181315 PDT | + + + + | Respiratory Rate | 12 | 09/24/20181315 PDT | + + + + | Oxygen Saturation | 99% | 09/24/20181429 PDT | + + + + | [...] 09/24/20181142 PDT | + + + + Plan of Treatment + + + + + | Health Maintenance | Due Date | Last Done | Comments | + + + + + | Vaccine: | | | | | Dtap/Tdap/Td (1 - | 4 | | | | Tdap) | | | | + + + + + | Cervical Cancer | | | | | Screening (Pap) | 5 | | | + + + + + | Vaccine: Influenza | | | | | (Season Ended) | 9 | | | + + + + + Procedures + +--------+ + + + | [...] | + +--------+ + + + | ANE AIRWAY NOTE | Routin | 09/24/2018 | | Results for this | | | e | 12:37 PDT | | procedure are in the [...] section. | + +--------+ + + + from Last 3 Months Results [place] ERCP (09/24/2018 13:11 PDT) + [...] | | | + +---------+ + + Airway (09/24/2018 12:37 PDT) + + + | Narrative | Performed At | + + + | Avery Love MD 09/24/2018 12:39 Anesthesia Airway | | | Placement 09/24/2018 12:27 Preprocedure check: patient identified, | | | oxygen, airway assessed, patient reassessment prior to induction, | | | airway equipment checked and suction Rapid Sequence Induction: no | | | Mask ventilation: easy Airway grade: 4 (Neither epiglottis or | | | glottis seen) Attempts: 1 Airway type: laryngeal mask Size: 4 | | | Route, reference point: center of mouth Tube secured with: adhesive | | | tape Trauma: none Tube placement verification: carbon dioxide | | | detection, equal bilateral breath sounds and bilateral chest rise | | | Performing provider: Avery Love MD Comments: Smooth IV | | | induction. LMA placed and well seated. Secured in place. | | | Breathing Circuit attached to LMA. BSEB/ETCO2 (auscultation and | | | capnography) and placement confirmed. Please see intraoperative | | | grid for any additional medication documentation. | | + + + + + | Procedure Note | + + | Avery Love MD - 09/24/2018 1237 PDT Anesthesia Airway Placement09/24/2018 | | 12:27Preprocedure check: patient identified, oxygen, airway assessed, patient | | reassessment prior to induction, airway equipment checked and suctionRapid Sequence | | Induction: noMask ventilation: easyAirway grade: 4 (Neither epiglottis or glottis | | seen)Attempts: 1Airway type: laryngeal maskSize: 4Route, reference point: center of | | mouthTube secured with: adhesive tapeTrauma: noneTube placement verification: carbon | | dioxide detection, equal bilateral breath sounds and bilateral chest risePerforming | | provider: Avery Love MDComments: Smooth IV induction.LMA placed and well seated. | | Secured in place.Breathing Circuit attached to LMA. BSEB/ETCO2 (auscultation and | | capnography) and placement confirmed.Please see intraoperative grid for any additional | | medication documentation. | |Tube secured with: adhesive tape | |Trauma: none | |Tube placement verification: carbon dioxide detection, equal bilateral breath sounds and bi lateral chest rise | |Performing provider: Avery Love MD | | | |Comments: Smooth IV induction. | |LMA placed and well seated. Secured in place. | |Breathing Circuit attached to LMA. | |BSEB/ETCO2 (auscultation and capnography) and placement confirmed. | | | | | |Please see intraoperative grid for any additional medication documentation. | + + ERCP (09/24/2018 12:09 PDT) + + | Specimen | + + | | + + + + ---+ | Narrative | Performed At | + + ---+ | | [facility] | | GastroenterologyPatient Name: Hannah Mccauley Date: 09/24/2018 12:09 | [facility] | | PMMRN: [id number] #: [id number] of : 1975Admit | | | Type: AmbulatoryAge: 43Room: [facility] 04Gender: FemaleNote Status: | | | FinalizedAttending MD: RODRICK SKINNER , | | | MDProcedure: ERCPIndications: Bile duct | | | stone(s), Abdominal pain of suspected biliary | | | origin, Filling defect on | | | intraoperative cholangiogram, | | | Elevated liver enzymesProviders: RODRICK SKINNER, | | | MD, Beryl Hernandez RN, | | | Elle Farley, Needle Punch Operator, Ansley Garcia, | | | Needle Punch Operator, Avery Love, | | | MD (Anesthesia Staff)Referring MD: Wyatt Higgins MD | [...] down the | | | road.Findings: A supervisor of officials film of the abdomen was obtained. | [...] | recommendations were discussed with the patient.RODRICK SKINNER | | | 09/24/2018 1:28:18 PMThis report has been signed | | | electronically.Number of Addenda: 0Note Initiated On: 09/24/2018 12:09 | | | PMScope In: 12:35:06 PMScope Out: 1:03:23 PM [facility]. | | | [facility], [address], [place] [address] | | | [phone] | | |Note Initiated On: 09/24/2018 12:09 PM | | |Scope In: 12:35:06 PM | | |Scope Out: 1:03:23 PM | | | [facility]. [facility], [address], [place], [place] | | | [address] | | + + ---+ + +---------+ [...] | 1.010, 1.015, | | | | [place], | | 1.020, 1.025 | | | [...] + + | Urine | + + CBC no Differential (09/24/2018 11:49 PDT) + +-------+ + + + | Component | Value | Ref Range | Performed | Pathologist | | | | | At | Signature | + +-------+ + + + | WBC | 8.4 | 4.0 - 11.0 K/uL | [facility] | | | | | [facility] | | | | | | [facility] | | | | | | C[facility] - | | | | | | LABORATORY | | + +-------+ + + + | RBC | 5.04 | 3.70 - 5.20 | [facility] | | | | | M/uL | [facility] | | | | [...] | | | | | | [facility] | | | | | | MEDICAL | | | | | | CENTER - | | | | | | LABORATORY | | + +-------+ + + + | % nRBC | 0 | 0 - 2 per 100 | [facility] | | | | | WBCs | [facility] | | | | | | [facility] | | | | | | CENTER - | | | | | | LABORATORY | | + +-------+ + + + | Absolute | 0.00 | 0.00 - 0.01 | [facility] | | | nRBC | | K/uL | [facility] | | | | | | [...] | + + + + + | [facility] | [address] | [place] | [phone] | | [facility] | | [address] | | | - LABORATORY | | | | + + + + + Comprehensive Metabolic Panel (09/24/2018 11:49 PDT) + + + + + + | Component | Value | Ref Range | Performed | Pathologist | | | | | At | Signature | + + + + + + | Na | 140 | 136 - 145 | [facility] | | | | | mmol/L | [facility] | | | | | | MEDICAL | | | | | | CENTER - | | | | | | LABORATORY | | + + + + + + | K | 3.6 | 3.4 - 5.1 | [facility] | | | | | mmol/L | [facility] | | | | | | [facility] | | | | | | CENTER - | | | | | | LABORATORY | | + + + + + + | Cl | 110 (H) | 98 - 107 mmol/L | [facility] | | | | | | [facility] | | | | | | [facility] | | | | | | CENTER - | | | | | | LABORATORY | | + + + + + + | CO2 | 25 | 20 - 31 mmol/L | [facility] | | | | | | [facility] | | | | | | [...] | | | | | mg/dL | [facility] | | | | | | MEDICAL | | | | | | CENTER - | | | | | | LABORATORY | | + + + + + + | eGFR if not | >60Comment: GLOMERULAR | >=60 | [facility] | | | | FILTRATION | mL/min/1.73m2 | [facility] | | | MONG[place] | RATE,ESTIMATED mL/min | | MEDICAL | | | | /1.14u9Gkyv than 60 | | CENTER - | [...] | | | | | mg/dL | [facility] | | | | | | MEDICAL | | | | | | CENTER - | | | | | | LABORATORY | | + + + + + + | Albumin | 4.8 | 3.2 - 4.8 g/dL | [facility] | | | | | | [facility] | | | | | | [...] + | BUN/Creatin | 15.0 | | [facility] | | | ine Ratio | | | [facility] | | [...] | + + + + + | [facility] | [address] | [place] | [phone] | | [facility] | | [address] | | | - LABORATORY | | | | + + + + + from Last 3 Months Insurance + +--------+ +--------+ +---------+--------+ | Payer | Benefi | Subscriber | Effect | Phone | Address | Type | | | t Plan | ID | ashely | | | | | | / | | Dates | | | | | | Group | | | | | | + +--------+ +--------+ +---------+--------+ | [facility] | IHS | [id number] | Effect | | | Indemn | | SERVICE | YELLOW | | ashely | | | ity | | | HAWK | | for | | | | | | | | all | | | | | | | | dates | | | | + +--------+ +--------+ +---------+--------+ | [employer] [place] | MEDICA | [id number] | | [phone] | | Medica | | | [place] | | 019-Pr | 2 | | id | | | PLUS | | esent | | | | + +--------+ +--------+ +---------+--------+ + +--------+ +--------+ + + | Guarantor Name | Accoun | Relation to | Date | Phone | Billing Address | | | t Type | Patient | of | | | | | | | | | | + +--------+ +--------+ + + | Hannah Wade | Person | Self [birth year] | [address] | | | al/Fam | | 1976 | [phone] | [place] [address] | | | emiliano | | | 8 (Home) | | + +--------+ +--------+ + + Advance Directives Patient has advance care planning documents on file. For more information, please contact:[facility] [place] [address]
--- OUTSIDE RECORDS SUMMARY | ~2018-09-24 | XMS | Encounter Summary ---
Demographics + + + | Address | [address] | | | [place] [address] | + + + | Home Phone | | + + + | Preferred Language | Unknown | + + + | Marital Status | Single | + + + | Restoration Affiliation | Unknown | + + + | Race | Unknown | + + + | Ethnic Group | Unknown | + + + Author + + + | Author | [facility] | | | and [place] | + + + | Organization | [facility] | | | and [place] | + + + | Address | Unknown | + + + | Phone | Unavailable | + + + Support + + + + + | Name | Relationship | Address | Phone | + + + + + | Farheen Brown | ECON | [place], [place] | | | | | [address] | | + + + + + Care Team Providers + +------+ + | Care Milk Vendor Name | Role | Phone | + +------+ + | Wyatt Higgins | PCP | | + +------+ + Encounter Details +--------+ + + + + | Date | Type | Department | Care Team | Description | +--------+ + + + + | 09/22/ | Abstract | [facility] [place] | Rodrick Vaz | | | 2018 | | GASTROENTEROLOGY | MD Wyatt [address] | | | | | [address] [place] | [address] | | | | | [address] [place] | [place] [address] | | | | | [address] | [phone] | | | | | [phone] | | | +--------+ + + + + Social History + +-------+ [...] + + + | Blood Pressure | - | - | + + + + | Pulse | - | - | + + + + | Temperature | - | - | + + + + | Respiratory Rate | - | - | + + + + | Oxygen Saturation | - | - | + + + + | Inhaled Oxygen | - | - | | Concentration | | | + + + + | Weight | 100.2 kg (221 lb) | 09/22/20181443 PDT | + + + + | Height | 152.4 cm (5') | 09/22/20181443 PDT | + + + + | Body Mass Index | 43.16 | 09/22/2018 1444 PDT | + + + + documented in this encounter Plan of Treatment Not on filedocumented as of this encounter Visit Diagnoses Not on filedocumented in this encounter"
--- OUTSIDE RECORDS SUMMARY | ~2018-09-24 | XMS | Encounter Summary ---
Demographics + + + | Address | [address] | | | [place] [address] | + + + | Home Phone | | + + + | Preferred Language | Unknown | + + + | Marital Status | Single | + + + | Voodoo Affiliation | Unknown | + + + | Race | Unknown | + + + | Ethnic Group | Unknown | + + + Author + + + | Author | [facility] | | | and [place] | + + + | Organization | [facility] | | | and [place] | + + + | Address | Unknown | + + + | Phone | Unavailable | + + + Support + + + + + | Name | Relationship | Address | Phone | + + + + + | Farheen Brown | ECON | [place], [place] | | | | | [address] | | + + + + + Care Team Providers + +------+ + | Care Thoracic Surgeon Name | Role | Phone | + +------+ + | Wyatt Matson | PCP | | + +------+ + [...] | | | bladder | | [place] [address] | | | | | stones | | Phone: | | | | | Procedures | | [phone] | | | | | [place] | | Fax: | | | | | ESOPHAGOGAST | | [phone] | | | | | RODUODENOSCO | | | | | | | PY TRANSORAL | | | | | | | DIAGNOSTIC | | | | | | | CO ERCP DX | | | | | | | COLLECTION | | | | | | | SPECIMEN | | | | | | | BRUSHING/WAS | | | | | | | [place] | | | | | | | ANESTHESIA | | | | | | | UPPER GI | | | | | | | ENDOSCOPIC | | | | | | | PX ERCP | | | | | | | ERCP | | | +--------+--------+ + + + + Encounter Details +--------+ + + + + | Date | Type | Department | Care Team | Description | +--------+ + + + + | 09/24/ | Hospital | [facility] | Rodrick Skinner | Common bile duct | | 2019 | Encounter | MED [facility] INTRA OP | MD Wyatt [address] | (CBD) obstruction; | | | | [address] | [address] [place] | Gall bladder stones; | | | | [place], [place] | [place] [address] | Right upper | | | | [address] | [phone] | quadrant abdominal | | | | [phone] | | pain; Abnormal LFTs | +--------+ + + + + Social [...] 09/24/2018 12:09 | [facility] | | PMMRN: [id number] #: [id number] of : 1975Admit | | | Type: AmbulatoryAge: 43Room: [facility] 04Gender: FemaleNote Status: | | | FinalizedAttending MD: RODRICK SKINNER , | | | MDProcedure: ERCPIndications: Bile duct | | | stone(s), Abdominal pain of suspected biliary | | | origin, Filling defect on | | | intraoperative cholangiogram, | | | Elevated liver enzymesProviders: RODRICK SKINNER, | | | MD, Beryl Hernandez RN, | | | Elle Farley, Scudding Inspector, Ansley Garcia, | | | Scudding Inspector, Avery Love, | | | MD (Anesthesia Staff)Referring MD: Waytt Matson MD | | | (Referring MD)Medicines: Monitored [...] well. The case was discussed with Dr Matson on the | | | phone prior to the procedure. He requested stone extraction, | | | and then he plans to remove the T tube down the | | | road.Findings: A fruit i farmworker film of the abdomen was obtained. | [...] | recommendations were discussed with the patient.RODRICK SKINNER, | | | 09/24/2018 1:28:18 PMThis report has been signed | | | electronically.Number of Addenda: 0Note Initiated On: 09/24/2018 12:09 | | | PMScope In: 12:35:06 PMScope Out: 1:03:23 PM [facility]. | | | [facility], [facility] [place] [address] | | | [phone] | | |Note Initiated On: 09/24/2018 12:09 PM | | |Scope In: 12:35:06 PM | | |Scope Out: 1:03:23 PM | | | [facility]. [facility], [address] [place], [place] | | | [address] | | + + ---+ + +---------+ [...] | 1.010, 1.015, | | | | [place], | | 1.020, 1.025 | | | [...] + | Urine | + + Comprehensive [facility] Panel (09/24/2018 11:49 PDT) + + + [...] (H) | 98 - 107 mmol/L | [facility] | | | | | | ST. [...] 12 | 9 - 23 mg/dL | [facility] | | | | | | [facility] | | | | | | MEDICAL | | | | | | CENTER - | | | | | | LABORATORY | | + + + + + + | Creatinine | 0.80 | 0.55 - 1.02 | [facility] | | | | | mg/dL | [facility] | | | | | | MEDICAL | | | | | | CENTER - | | | | | | LABORATORY | | + + + + + + | eGFR if not | >60Comment: GLOMERULAR | >=60 | [facility] | | | | FILTRATION | mL/min/1.73m2 | [facility] | | | POLISH | RATE,ESTIMATED mL/min | | MEDICAL | | | | /1.10p3Mnxp than 60 | | CENTER - | [...] | + + + + + | [facility] | [address] | [place] | [phone] | | [facility] | | [address] | | | - LABORATORY | | [...] | | | | | M/uL | [facility] | | | | | [...] | + + + + + | [facility] | [address] | [place] | [phone] | | [facility] | | [address] | | | - LABORATORY | | | | + + + + + documented in this encounter Visit Diagnoses + + | Diagnosis | + + | Common bile duct (CBD) obstruction Obstruction of bile duct | + + | Gall bladder stones Calculus of gallbladder without mention of cholecystitis or | | obstruction | + + | Right upper quadrant abdominal pain Abdominal pain, right upper quadrant | + + | Abnormal LFTs Other abnormal blood chemistry | + + documented in this encounter [...] MIN PRN, | | | Pain, Starting Simran 09/24/18 at | | | 1337, Maximum [...] 12:34 | | | | | Starting Simarn 09/24/18 at 1234 | | PDT | [...] ONCE | | | PRN, Nausea, Starting [facility] 09/24/18 | | | at 1337, For 1 dose, | | | Recovery/Phase I | | + +---+ | | | + +---+ documented in this encounter
--- OUTSIDE RECORDS SUMMARY | ~2018-09-24 | XMS | Clinical Summary ---
Demographics + + + | Address | [address] | | | [place] [address] | + + + | Home Phone | | + + + | Preferred Language | Unknown | + + + | Marital Status | Single | + + + | Pentecostal Affiliation | Unknown | + + + | Race | Unknown | + + + | Ethnic Group | Unknown | + + + Author + + + | Author | [facility] | | | and [place] | + + + | Organization | [facility] | | | and [place] | + + + | Address | Unknown | + + + | Phone | Unavailable | + + + Support + + + + + | Name | Relationship | Address | Phone | + + + + + | Farheen Brown | ECON | [place], [place] | | | | | [address] | | + + + + + Care Team Providers + +------+ + | Care Produce Department Supervisor Name | Role | Phone | + [...] automatically from request for surgery | | [id number] | + + + + + | Gall bladder stones | 09/22/2018 | + + + + + | Overview: Added automatically from request for surgery | | [id number] | + + Encounters +--------+ + + [...] 09/24/2018 12:09 | [facility]OVATION | | PMMRN: [id number] #: [id number] of : 1975Admit | | | Type: AmbulatoryAge: 43[facility] 04Gender: FemaleNote Status: | | | FinalizedAttending MD: RODRICK SKINNER , | | | MDProcedure: ERCPIndications: Bile duct | | | stone(s), Abdominal pain of suspected biliary | | | origin, Filling defect on | | | intraoperative cholangiogram, | | | Elevated liver enzymesProviders: RODRICK SKINNER, | | | MD, Beryl Hernandez RN, | | | Elle Farley, Compressor Station Operator, Ansley Garcia, | | | Compressor Station Operator, Avery Love, | | | MD [...] down the | | | road.Findings: A dental aide film of the abdomen was obtained. | [...] PMScope In: 12:35:06 PMScope Out: 1:03:23 PM [facility]. | | | [facility], [address], [place] [address] | | | [phone] | | |Note Initiated On: 09/24/2018 12:09 PM | | |Scope In: 12:35:06 PM | | |Scope Out: 1:03:23 PM | | | [facility]. [facility], [address], [place], [place] | | | [address] | | + + ---+ + +---------+ [...] | 1.010, 1.015, | | | | [place], | | 1.020, 1.025 | | | [...] + | [facility] | [address] | [place]cal[place] | [phone] | | [facility] | | [address] | | | - LABORATORY | | [...] not | >60Comment: GLOMERULAR | >=60 | PROVIDEILJoanna | | | | FILTRATION | mL/min/1.73m2 | [facility]NA[facility] | | | SALVADOREAN | RATE,ESTIMATED mL/min | | MEDICAL | | | | /1.92o1Igbk than 60 | | CENTER - | [...] [address] | [place] | [phone] | | [facility] | | [address] | | | - LABORATORY | | [...] | | + +--------+ +--------+ +---------+--------+ | [facility] | IHS | [id number] | Effect | | | Indemn | | SERVICE | YELLOW | | ashely | | | ity | | | HAWK | | for | | | | | | | | all | | | | | | | | dates | | | | + +--------+ +--------+ +---------+--------+ | MEDICAID [place] | MEDICA | [id number] | | [phone] | | Medica | [...] | 1976 | [phone] | [place] [address] | | | emiliano | | | 8 (Home) | | + +--------+ +--------+ + + Advance Directives Patient has advance care planning documents on file. For more information, please contact:[facility] [place] [address]
--- OUTSIDE RECORDS SUMMARY | ~2018-09-24 | XMS | Encounter Summary ---
Demographics + + + | Address | [address] | | | [place] [address] | + + + | Home Phone [...] + + + | Author | [facility] | | | and [place] | + + + | Organization | [facility] | | | and [place] | + + + | Address | Unknown | + + + | Phone | Unavailable | + + + Support + + + + + | Name | Relationship | Address | Phone | + + + + + | Farheen Brown | ECON | [place], [place] | | | | | [address] | | + + + + + Care Team Providers + +------+ + | Care Channel Executive Name | Role | Phone | + [...] | | | bladder | | [place] [address] | | | | | stones | | Phone: | | | | | Procedures | | [phone] | | | | | [place] | | Fax: | | | | | ESOPHAGOGAST | | [phone] | | | | | RODUODENOSCO | | | | | | | PY TRANSORAL | | | | | | | DIAGNOSTIC | | | | | | | [place] ERCP DX | | | | | | | COLLECTION | | | | | | | SPECIMEN | | | | | | | BRUSHING/WAS | | | | | | | [place] | | | | | | | [...] | | | | | [address] | | | | | | [place], [place] | | | | | | [address] | | | | | | [phone] | | | +--------+---------+ + + + [...] 09/24/2018 12:09 | PROVATION | | PMMRN: [id number] #: [id number] of : 1975Admit | | | Type: AmbulatoryAge: Room: [place] [address]Gender: FemaleNote Status: | | | FinalizedAttending MD: RODRICK SKINNER , | | | MDProcedure: ERCPIndications: Bile duct | | | stone(s), Abdominal pain of suspected biliary | | | origin, Filling defect on | | | intraoperative cholangiogram, | | | Elevated liver enzymesProviders: RODRICK SKINNER, | | | , Beryl Hernandez RN, | | | Elle Farley, Program Assistant, Ansley Garcia, | | | Program Assistant, Avery Love, | | | (Anesthesia Staff)Referring [...] down the | | | road.Findings: A personal companion film of the abdomen was obtained. | [...] PMScope In: 12:35:06 PMScope Out: 1:03:23 PM [facility]. | | | [facility], [facility] [place] [place] [address] | | | [phone] | | |Note Initiated On: 09/24/2018 12:09 PM | | |Scope In: 12:35:06 PM | | |Scope Out: 1:03:23 PM | | | [facility]. [facility], [address], [place], [place] | | | [address] | | + + ---+ + +---------+ [...] | 1.010, 1.015, | | | | [place], | | 1.020, 1.025 | | | [...] | | | FILTRATION | mL/min/1.73m2 | [facility] | | | TAIWANESE | RATE,ESTIMATED mL/min | | MEDICAL | | | | /1.81s4Hbbs than 60 | | CENTER - | [...] | | | | | mg/dL | [facility] | | | | | | MEDICAL [...] + | [facility] | [address] | [place] | [phone] | | [facility] | | [address] | | | - LABORATORY | | [...] ST. | [address] | [place] | [phone] | | [facility] | | [address] | | | - LABORATORY | | [...] MIN PRN, | | | Pain, Starting [facility] 09/24/18 at | | | 1337, Maximum [...] 12:34 | | | | | Starting [facility] 09/24/18 at 1234 | | PDT | [...]
--- OUTSIDE RECORDS SUMMARY | ~2018-09-24 | XMS | Encounter Summary ---
Demographics + + + | Address | [address] | | | [place] [address] | + + + | Home Phone | | + + + | Preferred Language | Unknown | + + + | Marital Status | Single | + + + | Rastafari Affiliation | Unknown | + + + | Race | Unknown | + + + | Ethnic Group | Unknown | + + + Author + + + | Author | [facility] | | | and [place] | + + + | Organization | [facility] | | | and [place] | + + + | Address | Unknown | + + + | Phone | Unavailable | + + + Support + + + + + | Name | Relationship | Address | Phone | + + + + + | Farheen Brown | ECON | [place], [place] | | | | | [address] | | + + + + + Care Team Providers + +------+ + | Care Machine Inspector Name | Role | Phone | + +------+ + | Wyatt Higgins | PCP | | + +------+ + Reason for Visit + + + | Reason | Comments | + + + | Procedure | ERCP | + + + Encounter Details +--------+ + + + + | Date | Type | Department | Care Team | Description | +--------+ + + + + | 09/22/ | Telephone | [facility] | Rodrick Vaz | Procedure (ERCP) | | 2019 | | GASTROENTEROLOGY | MD [address] | | | | | [address] [place] | [address] [place] | | | | | [address] [place], [place] | [place] [address] | | | | | [address] | [phone] | | | | | [phone] | | | +--------+ + + + [...] filedocumented as of this encounter Visit Diagnoses + + | Diagnosis | + + | Common bile duct (CBD) obstruction - Primary Obstruction of bile duct | + + | Gall bladder stones Calculus of gallbladder without mention of cholecystitis or | | obstruction | + + documented in this encounter"
--- OUTSIDE RECORDS SUMMARY | ~2018-09-24 | XMS | Encounter Summary ---
Demographics + + + | Address | [address] | | | [place] [address] | + + + | Home Phone | | + + + | Preferred Language | Unknown | + + + | Marital Status | Single | + + + | Worship Affiliation | Unknown | + + + | Race | Unknown | + + + | Ethnic Group | Unknown | + + + Author + + + | Author | [facility] | | | and [place] | + + + | Organization | [facility] | | | and [place] | + + + | Address | Unknown | + + + | Phone | Unavailable | + + + Support + + + + + | Name | Relationship | Address | Phone | + + + + + | Farheen Brown | ECON | [place], [place] | | | | | [address] | | + + + + + Care Team Providers + +------+ + | Care Edge Burnisher Uppers Name | Role | Phone | + [...] | | | bladder | | [place] [address] | | | | | stones | | Phone: | | | | | Procedures | | [phone] | | | | | [place] | | Fax: | | | | | ESOPHAGOGAST | | [phone] | | | | | RODUODENOSCO | | | | | | | PY TRANSORAL | | | | | | | DIAGNOSTIC | | | | | | | [place] ERCP DX | | | | | | | COLLECTION | | | | | | | SPECIMEN | | | | | | | BRUSHING/WAS | | | | | | | [place] | | | | | | | [...] + + | 09/24/ | Anesthesia | [facility] | Avery Love | | | 2019 | Event | MED CTR OR INTRA OP | MD Ang [address] | | | | | [address] | [address] [place], [place] | | | | | [place], [place] | [address] | | | | | [address] | | | | | | [phone] | | | +--------+ + + + + Anesthesia Record + + + + + | Procedure Name | Responsible | Anesthesia Start | Anesthesia Stop Time | | | Anesthesiologist | Time | | + + + + + | LUCHO (N/A Shabana) | Avery Love, | 09/24/18 1221 | 09/24/18 1319 | | | MD | | | + + + + + +----+---+ + + | Da | T | Event | Comment | | te | i | | | | | m | | | | | e | | | +----+---+ + + | 04 | 1 | | | | /2 | 1 | | | | 5/ | 5 | | | | 20 | 9 | | | | 19 | | | | +----+---+ + + | | 1 | An Checkout | Pre-use anesthesia machine/equipment checkout. | | | 2 | | | | | 0 | | | | | 0 | | | +----+---+ + + | | 1 | AN | Per surgeon request | | | 2 | Antibiotic | | | | 2 | declined | | | | 0 | | | +----+---+ + + | | 1 | An Start | I room [address] [facility] 2. Reassessment prior to | | | 2 | | anesthesia induction/procedure. | | | 2 | | | | | 1 | | | +----+---+ + + | | 1 | an jesús now | | | | 2 | | | | | 2 | | | | | 1 | | | +----+---+ + + | | 1 | Preoxygenat | | | | 2 | ed | | | | 2 | | | | | 3 | | | +----+---+ + + | | 1 | An | | | | 2 | Induction | | | | 2 | | | | | 6 | | | +----+---+ + + | | 1 | First | | | | 2 | Inc/Proc St | | | | 2 | | | | | 7 | | | +----+---+ + + | | 1 | An | | | | 2 | Intubation | | | | 2 | | | | | 7 | | | +----+---+ + + | | 1 | AN Bite | | | | 2 | Block | | | | 2 | | | | | 8 | | | +----+---+ + + | | 1 | Antibiotic | | | | 2 | Given | | | | 3 | | | | | 4 | | | +----+---+ + + | | 1 | NG/OG LDA | | | | 3 | Removed | | | | 1 | | | | | 4 | | | +----+---+ + + | | 1 | Breathing | | | | 3 | Spontaneous | | | | 1 | ly | | | | 6 | | | +----+---+ + + | | 1 | An Stop | Patient handed off to recovery nurse. | | | 1 | | | | | 9 | | | +----+---+ + + +------+ | Meds | +------+ + + + | Name | Total | + + + | lidocaine 2% (PF) | 40 mg | + + + | propofol (DIPRIVAN) injection | 200 mg | | (bolus) (20 mL) | | + + + | propofol | 956.16 mg | + + + | lactated ringers (LR) infusion | 800 mL | + + + + + | Name | + + | N2O Flow Rate (L/Min) | + + | O2 Flow Rate (L/Min) | + + | Insp O2 | + + | Exp SEV | + + | Air Flow Rate (L/Min) | + + + + | No blood administrations on file. | + + +--------+ + + + | Type | Details | Placement | Removal | +--------+ + + + | Periph | 09/24/18; 1213; Right; | 09/24/18 1213 by | 09/24/18 1554 by | | eral | Antecubital; [id number] | Karolyn Razo RN | Karolyn Razo RN | | IV | catheter system; 20 gauge; | | | | | Hematology, Chemistry, | | | | | Coagulation; distraction, | | | | | intradermal injection; no longer | | | | | indicated; 09/24/18; 1554 | | | +--------+ + + + | Airway | Placement Date: 09/24/18; | 09/24/18 122 by | 09/24/18 1554 by | | | Placement Time: 1227 (created via | Avery Love, | Karolyn Razo RN | | | procedure documentation); Mask | MD | | | | Ventilation: EZ; Airway Grade: 4; | | | | | Attempts: 1; Airway Type: | | | | | laryngeal mask; Size: 4; Trauma: | | | | | none; Placement Check: exhaled | | | | | CO2 detection device, bilateral | | | | | chest rise, breath sounds equal | | | | | bilaterally; Removal Date: | | | | | 09/24/18; Removal Time: 1554; | | | | | Additional Comments: Smooth IV | | | | | induction. LMA placed and well | | | | | seated. Secured in place. | | | | | Breathing Circuit attached to | | | | | LMA. BSEB/ETCO2 (auscultation | | | | | and capnography) and placement | | | | | confirmed. | | | +--------+ + + + documented in this encounter Social History + +-------+ +--------+------+ | Tobacco [...] Not on filedocumented as of this encounter Results Airway (09/24/2018 12:37 PDT) + + + [...] any additional medication documentation. | + + documented in this encounter Visit Diagnoses Not on filedocumented in this encounter Administered Medications + +--------+ +-------+------+------+ | Medication Order | MAR | Action | Dose | Rate | Site | | | Action | Date | | | | + +--------+ +-------+------+------+ | lidocaine (PF) 2% injection | Given | 09/25/19 | 40 mg | | | | PRN, Starting [facility] 09/24/18 at | | 19 12:27 | | | | | 1227, Anesthesia Intra-op | | PDT | | | | + +--------+ +-------+------+------+ +---+---+ | | | +---+---+ + +-------+ +--------+---+---+ | propofol (DIPRIVAN) injection | Given | 09/25/19 | 200 mg | | | | PRN, Starting [facility] 09/24/18 at | | 19 12:26 | | | | | 1226, Anesthesia Intra-op | | PDT | | | | + +-------+ +--------+---+---+ +---+---+ | | | +---+---+ + + + + +--------+---+ | propofol (DIPRIVAN) injection | Rate/Dos | 09/25/19 | 200 | 119.5 | | | Intravenous, CONTINUOUS PRN, | e Change | 19 12:52 | mcg/kg/m | mL/hr | | | Starting [facility] 09/24/18 at 1232, | | PDT | in | | | | Anesthesia Intra-op | | | | | | + + + + +--------+---+ +---------+ + +--------+---+ | New Bag | 09/25/19 | 300 | 179.3 | | | | 19 12:32 | mcg/kg/m | mL/hr | | | | PDT | in | | | +---------+ + +--------+---+ +---+---+ | | | +---+---+ documented in this encounter"
--- OUTSIDE RECORDS SUMMARY | ~2018-09-24 | XMS | Encounter Summary ---
Demographics + + + | Address | [address] | | | [place] [address] | + + + | Home Phone | | + + + | Preferred Language | Unknown | + + + | Marital Status | Single | + + + | Episcopal Affiliation | Unknown | + + + | Race | Unknown | + + + | Ethnic Group | Unknown | + + + Author + + + | Author | [facility] | | | and [place] | + + + | Organization | [facility] | | | and [place] | + + + | Address | Unknown | + + + | Phone | Unavailable | + + + Support + + + + + | Name | Relationship | Address | Phone | + + + + + | Farheen Brown | ECON | [place], [place] | | | | | [address] | | + + + + + Care Team Providers + +------+ + | Care Cribber Name | Role | Phone | + +------+ + | Wyatt Higgins | PCP | | + +------+ + Reason for Visit + + + | Reason | Comments | + + + | Appointment | check in at 11 for ERCP | + + + Encounter Details +--------+ + + + + | Date | Type | Department | Care Team | Description | +--------+ + + + + | 09/24/ | Telephone | [facility] | Rodrick Vaz | Appointment (check | | 2019 | | MED CTR MP INTRA OP | MD Wy[address] | in at 11 for ERCP) | | | | [address] | [address] [facility] | | | | | [place] | [place] [address] | | | | | [address] | [phone] | | | | | [phone] | | | +--------+ + + + [...]
--- OUTSIDE RECORDS SUMMARY | ~2018-09-24 | XMS | Encounter Summary ---
Demographics + + + | Address | [address] | | | [place] [address] | + + + | Home Phone | | + + + | Preferred Language | Unknown | + + + | Marital Status | Single | + + + | Pentecostal Affiliation | Unknown | + + + | Race | Unknown | + + + | Ethnic Group | Unknown | + + + Author + + + | Author | [facility] | | | and [place] | + + + | Organization | [facility] | | | and [place] | + + + | Address | Unknown | + + + | Phone | Unavailable | + + + Support + + + + + | Name | Relationship | Address | Phone | + + + + + | Farheen Brown | ECON | [place], [place] | | | | | [address] | | + + + + + Care Team Providers + +------+ + | Care Site Reliability Engineer Name | Role | Phone | + [...] + | 09/22/ | Telephone | [facility] | Rodrick Vaz | Procedure (ERCP) | | 2019 | | GASTROENTEROLOGY | MD [address] | | | | | [address] [place] | [address] [place] | | | | | [address] [place], [place] | [place] [address] | | | | | [address] | [phone] | | | | | [phone] | | | +--------+ + + + [...]
--- OUTSIDE RECORDS SUMMARY | ~2018-09-24 | XMS | Encounter Summary ---
Demographics + + + | Address | [address] | | | [place] [address] | + + + | Home Phone | | + + + | Preferred Language | Unknown | + + + | Marital Status | Single | + + + | Cheondoism Affiliation | Unknown | + + + | Race | Unknown | + + + | Ethnic Group | Unknown | + + + Author + + + | Author | [facility] | | | and [place] | + + + | Organization | [facility] | | | and [place] | + + + | Address | Unknown | + + + | Phone | Unavailable | + + + Support + + + + + | Name | Relationship | Address | Phone | + + + + + | Farheen Brown | ECON | [place], [place] | | | | | [address] | | + + + + + Care Team Providers + +------+ + | Care Underwriting Support Manager Name | Role | Phone | + [...] | | | bladder | | [place] [address] | | | | | stones | | Phone: | | | | | Procedures | | [phone] | | | | | [place] | | Fax: | | | | | ESOPHAGOGAST | | [phone] | | | | | RODUODENOSCO | | | | | | | PY TRANSORAL | | | | | | | DIAGNOSTIC | | | | | | | [place] ERCP DX | | | | | | | COLLECTION | | | | | | | SPECIMEN | | | | | | | BRUSHING/WAS | | | | | | | [place]EL[place] | | | | | | | [...] | | | | | [address] | [address] [place], [place] | | | | | [place], [place] | [address] | | | | | [address] | | | | | | [phone] | | | +--------+ + + + [...] | I room 4 with patient from [facility] 2. Reassessment prior to | | | [...] 1554 by | | eral | Antecubital; [id number]-mryuvg | Karolyn Razo RN | Karolyn Razo [...] mg | | | | PRN, Starting [facility] 09/24/18 at | | 19 [...]
--- OUTSIDE RECORDS SUMMARY | ~2018-09-24 | XMS | Encounter Summary ---
Demographics + + + | Address | [address] | | | [place] [address] | + + + | Home Phone | | + + + | Preferred Language | Unknown | + + + | Marital Status | Single | + + + | Episcopalian Affiliation | Unknown | + + + | Race | Unknown | + + + | Ethnic Group | Unknown | + + + Author + + + | Author | [facility] | | | and [place] | + + + | Organization | [facility] | | | and [place] | + + + | Address | Unknown | + + + | Phone | Unavailable | + + + Support + + + + + | Name | Relationship | Address | Phone | + + + + + | Farheen Brown | ECON | [place], [place] | | | | | [address] | | + + + + + Care Team Providers + +------+ + | Care Teleradiologist Name | Role | Phone | + [...] | | | bladder | | [place] [address] | | | | | stones | | Phone: | | | | | Procedures | | [phone] | | | | | [place] | | Fax: | | | | | ESOPHAGOGAST | | [phone] | | | | | RODUODENOSCO | | | | | | | PY TRANSORAL | | | | | | | DIAGNOSTIC | | | | | | | [place] ERCP DX | | | | | | | COLLECTION | | | | | | | SPECIMEN | | | | | | | BRUSHING/WAS | | | | | | | [place] | | | | | | | [...] + + | 09/24/ | Hospital | [facility] | Rodrick Vaz | Arrived | | 2019 | Encounter | MED CTR XRAY [address] | MD Wy[address] | | | | | [place] | [address] [place] | | | | | [place] [address] | [place] [address] | | | | | [phone] | [phone] | | | | | | | | +--------+ + [...]
--- OUTSIDE RECORDS SUMMARY | ~2018-09-24 | XMS | Encounter Summary ---
Demographics + + + | Address | [address] | | | [place] [address] | + + + | Home Phone | | + + + | Preferred Language | Unknown | + + + | Marital Status | Single | + + + | Confucianist Affiliation | Unknown | + + + | Race | Unknown | + + + | Ethnic Group | Unknown | + + + Author + + + | Author | [facility] | | | and [place] | + + + | Organization | [facility] | | | and [place] | + + + | Address | Unknown | + + + | Phone | Unavailable | + + + Support + + + + + | Name | Relationship | Address | Phone | + + + + + | Farheen Brown | ECON | [place], [place] | | | | | [address] | | + + + + + Care Team Providers + +------+ + | Care Poultry Processing Supervisor Name | Role | Phone | [...] ERCP) | | | | [address] | [address] [facility] | | | | | [place] | [place] [address] | | | | | [address] | [phone] | | | | | [phone] | | | +--------+ + + + [...]
--- OUTSIDE RECORDS SUMMARY | ~2018-09-24 | XMS | Encounter Summary ---
Demographics + + + | Address | [address] | | | [place] [address] | + + + | Home Phone | | + + + | Preferred Language | Unknown | + + + | Marital Status | Single | + + + | Baptist Affiliation | Unknown | + + + | Race | Unknown | + + + | Ethnic Group | Unknown | + + + Author + + + | Author | [facility] | | | and [place] | + + + | Organization | [facility] | | | and [place] | + + + | Address | Unknown | + + + | Phone | Unavailable | + + + Support + + + + + | Name | Relationship | Address | Phone | + + + + + | Farheen Brown | ECON | [place], [place] | | | | | [address] | | + + + + + Care Team Providers + +------+ + | Care Industrial Order Clerk Name | Role | Phone | [...] | | | bladder | | [place] [address] | | | | | stones | | Phone: | | | | | Procedures | | [phone] | | | | | [place] | | Fax: | | | | | ESOPHAGOGAST | | [phone] | | | | | RODUODENOSCO | | | | | | | PY TRANSORAL | | | | | | | DIAGNOSTIC | | | | | | | [place] ERCP DX | | | | | | | COLLECTION | | | | | | | SPECIMEN | | | | | | | BRUSHING/WAS | | | | | | | [place] | | | | | | | [...] + + | 09/24/ | Hospital | [facility] | Rodrick Vaz | Arrived | | 2019 | Encounter | MED CTR XRAY [address] | MD Wy[address] | | | | | [place] | [address] [place] | | | | | [place] [address] | [place] [address] | | | | | [phone] | [phone] | | | | | | | [...]
--- OUTSIDE RECORDS SUMMARY | ~2018-09-24 | XMS | Encounter Summary ---
Demographics + + + | Address | [address] | | | [place] [address] | + + + | Home Phone | | + + + | Preferred Language | Unknown | + + + | Marital Status | Single | + + + | Confucianist Affiliation | Unknown | + + + | Race | Unknown | + + + | Ethnic Group | Unknown | + + + Author + + + | Author | [facility] | | | and [place] | + + + | Organization | [facility] | | | and [place] | + + + | Address | Unknown | + + + | Phone | Unavailable | + + + Support + + + + + | Name | Relationship | Address | Phone | + + + + + | Farheen Brown | ECON | [place], [place] | | | | | [address] | | + + + + + Care Team Providers + +------+ + | Care Polisher Implant Name | Role | Phone | + [...] | [address] | [place] [address] | | | | | [address] | [phone] | | | | | [phone] | | | +--------+ + + + [...]
--- OUTSIDE RECORDS SUMMARY | ~2018-09-24 | XMS | Encounter Summary ---
Demographics + + + | Address | [address] | | | [place] [address] | + + + | Home Phone | | + + + | Preferred Language | Unknown | + + + | Marital Status | Single | + + + | Moravian Affiliation | Unknown | + + + | Race | Unknown | + + + | Ethnic Group | Unknown | + + + Author + + + | Author | [facility] | | | and [place] | + + + | Organization | [facility] | | | and [place] | + + + | Address | Unknown | + + + | Phone | Unavailable | + + + Support + + + + + | Name | Relationship | Address | Phone | + + + + + | Farheen Brown | ECON | [place], [place] | | | | | [address] | | + + + + + Care Team Providers + +------+ + | Care Cosmetics Supervisor Name | Role | Phone | [...] | | | bladder | | [place] [address] | | | | | stones | | Phone: | | | | | Procedures | | [phone] | | | | | [place] | | Fax: | | | | | ESOPHAGOGAST | | [phone] | | | | | RODUODENOSCO | | | | | | | PY TRANSORAL | | | | | | | DIAGNOSTIC | | | | | | | [place] ERCP DX | | | | | | | COLLECTION | | | | | | | SPECIMEN | | | | | | | BRUSHING/WAS | | | | | | | [place] | | | | | | | [...] [facility] | Rodrick Skinner | Common bile duct | | 2019 | Encounter | [facility] OR [facility] OP | MD Wyatt [address] | (CBD) obstruction; | | | | [address] | [address] [place] | Gall bladder stones; | | | | [place], [place] | [place] [address] | Right upper | | | | [id number] | [phone] | quadrant abdominal | | | | [phone] | | pain; Abnormal LFTs | +--------+ [...] | FURTHER DETAILS. Dictated and Signed by: Euloigo Wheat MD | | | Electronically signed: [...] 09/24/2018 12:09 | [facility] | | PMMRN: [id number] #: [id number] of : 1975Admit | | | Type: AmbulatoryAge: 43Room: [facility] 04Gender: FemaleNote Status: | | | FinalizedAttending MD: RODRICK SKINNER , | | | MDProcedure: ERCPIndications: Bile duct | | | stone(s), Abdominal pain of suspected biliary | | | origin, Filling defect on | | | intraoperative cholangiogram, | | | Elevated liver enzymesProviders: RODRICK SKINNER, | | | MD, Beryl Hernandez RN, | | | Elle Farley, Florist Manager, Ansley Garcia, | | | Florist Manager, Avery Love, | | | MD (Anesthesia Staff)Referring MD: Wyatt Matson MD | | | (Referring MD)Medicines: [...] down the | | | road.Findings: A manager materials management film of the abdomen was obtained. | [...] PMScope In: 12:35:06 PMScope Out: 1:03:23 PM [facility]. | | | [facility], [facility] [place] [address] | | | [phone] | | |Note Initiated On: 09/24/2018 12:09 PM | | |Scope In: 12:35:06 PM | | |Scope Out: 1:03:23 PM | | | [facility]. [facility], [address] [place], [place] | | | [address] | | + + ---+ + +---------+ [...] | 1.010, 1.015, | | | | [place], | | 1.020, 1.025 | | | [...] + | Urine | + + Comprehensive Regalister Panel (09/24/2018 11:49 PDT) + + + [...] 12 | 9 - 23 mg/dL | [facility] | | | | | | [facility] | | | | | | [facility] | | | | | | [facility] - | | | | | | LABORATORY | | + + + + + + | Creatinine | 0.80 | 0.55 - 1.02 | [facility] | | | | | mg/dL | [facility] | | | | | | MEDICAL | | | | | | CENTER - | | | | | | LABORATORY | | + + + + + + | eGFR if not | >60Comment: GLOMERULAR | >=60 | [facility] | | | | FILTRATION | mL/min/1.73m2 | [facility] | | | [place] | RATE,ESTIMATED mL/min | | MEDICAL | | | | /1.99c4Bjqq than 60 | | CENTER - | [...] [address] | [place] | [phone] | | [facility] | | [address] | | | - LABORATORY | | [...] [address] | [place] | [phone] | | [facility] | | [address] | | | - LABORATORY | | [...] 12:34 | | | | | Starting Simran 09/24/18 at 1234 | | PDT | [...] ONCE | | | PRN, Nausea, Starting [facility] 09/24/18 | | | at 1337, For 1 dose, | | | Recovery/Phase I | | + +---+ | | | + +---+ documented in this encounter
[~2018-09-24 19:23] MED LIST: CIPRO500 MG PO; CYMBALTA60 MG PO; GABAPENTIN300 MG PO; HYDROMORPHONE HC2 MG PO; MAPAP325 MG PO
--- OUTSIDE RECORDS SUMMARY | 2018-09-24 19:26 | XMS ---
PreManage Notification: SHANNAN MAI Security Senior Treasury Analyst Events No recent Security Events currently on file CRITERIA MET - PDMP CARE PROVIDERS YAMEL SARAH [facility]ATHY Primary Care 12/01/2011-Current PHONE: [phone] [place] has no Care Guidelines for this patient. Any VISIT COUNT (12 MO.) 2 [facility] TOTAL 2 NOTE: Visits indicate total known visits. ED/UCC VISIT TRACKING (12 MO.) 09/24/2018 19:23 [facility] [place] TYPE: Emergency COMPLAINT: - POST OP PROBLEM/DIFFICULTY BREATHING 08/24/2018 15:43 [facility] TYPE: Emergency COMPLAINT: - ABD/BACK PAIN INPATIENT VISIT TRACKING (12 MO.) 08/24/2018 18:42 [facility] [place] TYPE: Medical Surgical COMPLAINT: - CHOLECYSTITIS DIAGNOSES: - Calculus of gallbladder and bile duct with acute cholecystitis with obstruction - Body mass index (BMI) 37.0-37.9, adult - Body mass index (BMI) 37.0-37.9, adult - Laparoscopic surgical procedure converted to open procedure - Calculus of gallbladder and bile duct with acute cholecystitis with obstruction - Nonspecific elevation of levels of transaminase and lactic acid dehydrogenase [LDH] - Morbid (severe) obesity due to excess calories - Laparoscopic surgical procedure converted to open procedure - Other predatory animal exterminator (current) drug therapy - Other jail (current) drug therapy - Morbid (severe) obesity due to excess calories [email or web address]
[2018-09-24] MEDS ORDERED: TRAZODONE HCL50 MG NG (19:38)
[2018-09-24] MEDS ORDERED: XANAX0.5 MG PO (19:38)
[2018-09-24] MEDS ORDERED: ZOLOFT50 MG PO (19:38)
--- NOTE | 2018-09-27 08:05 | EKG ---
[facility] [address] [place], [place] [address] Signed Normal sinus rhythm Normal ECG No previous ECGs available Confirmed by SANTOSH LANDERS MD ([id number]) on 09/27/2018 8:05:03 AM Electronically Signed By: SANTOSH LANDERS MD 09/27/18 0805 PATIENT NAME: SHANNAN MAI Electrocardiogram DATE OF : [birth year] PHYSICIAN: SANTOSH LANDERS MD REPORT #: [id number] REPORT IS CONFIDENTIAL AND NOT TO BE RELEASED WITHOUT AUTHORIZATION
== END 2018-09-24 22:12 | disposition home or self-care (01) ==
LOC: ED 19:23
DX: R06.00 Dyspnea, unspecified (principal); Z88.5 Allergy status to narcotic agent; Z79.899 Other long term (current) drug therapy
CPT/HCPCS: 71045; 71260; 80053; 84484; 85025; 85379; 93005; 93010; 99285-25; Q9967

== ENCOUNTER 2022-09-02 08:59 | Emergency (ER) | payer OTHER ==
[~2022-09-02] VITALS: Ht 162.6 cm; Wt 100.4 kg
[~2022-09-02 08:59] MED LIST changes: +TRAZODONE HCL50 MG NG; +XANAX0.5 MG PO; +ZOLOFT50 MG PO
--- OUTSIDE RECORDS SUMMARY | 2022-09-02 09:02 | XMS ---
PreManage Notification: SHANNAN MAI Security Client Services Analyst Events No recent Security Events currently on file CRITERIA MET - [facility] CARE PROVIDERS JAMEEL WILSON Physician 09/25/2018-[facility] PHONE: Unknown [facility] 02/28/2021-[facility] PHONE: [phone] [place] has no Care Guidelines for this patient. Care History Medical/Surgical 09/25/2018 [facility] \T\middot;\T\nbsp; [facility] NEEDS. \T\middot;\T\nbsp; [facility] FOR [facility]TS IF PATIENT CALLS FIRST THING IN THE MORNING. E.D. VISIT COUNT (12 MO.) 1 EREN [place] TOTAL 1 NOTE: Visits indicate total known visits. ED/UCC VISIT TRACKING (12 MO.) 09/02/2022 09:00 [facility] [place] TYPE: Emergency COMPLAINT: - LOWER BACK PAIN INPATIENT VISIT TRACKING (12 MO.) No inpatient visits to display in this time frame [email or web address]
[2022-09-02] MEDS ORDERED: LIDODERM1 EACH TOP (09:41)
== END 2022-09-02 09:55 | disposition home or self-care (01) ==
LOC: ED 08:59
DX: M54.50 Low back pain, unspecified (principal); Z88.5 Allergy status to narcotic agent
CPT/HCPCS: 99283; A9270